=== PATIENT | female | born 1935 | race Caucasian/White ===

== ENCOUNTER 2017-03-06 08:44 | Emergency (ER) | payer OTHER ==
[~2017-03-06] VITALS: Ht 160 cm; Wt 65.8 kg
[~2017-03-06 08:44] MED LIST: AMOXICILLIN500 M2 PO; ANTIVERT/2525 M1 PO; ASPIRIN ADULT L81 M1 PO; ASPIRIN80 MG PO; ATARAX25 MG PO; CIPRO500 MG PO; CIPROFLOXACIN500 MG PO; CLARITIN10 MG PO; CRESTOR10 MG PO; DAYPRO600 M1 PO; DIOVAN 12.5 MG-1 TAB PO; ELIMITE 5%60 GM PO; ISOTRATE ER60 MG PO; KENALOG0.1% TP; LEVOTHYROXINE0.1 MG PO; MECLIZINE HCL25 M2 PO; MEDROL DOSEPAK4 MG PO; NORVASC2.5 MG PO; OCUVITE1 TA1 PO; PRILOSEC10 MG/Pack PO; PRILOSEC20 M1 PO; RANEXA500 M1 PO; RANEXA500 MG PO; ROBITUSSIN AC 110 ML PO; SYNTHROID,LEVO75 MCG PO; TOPROL XL25 MG PO; VALSARTAN-HCTZ1 EAC1 PO; VALSARTAN-HCTZ1 EAC2 PO
[2017-03-06 09:15] LABS: BASO # 0.1 10*3/uL (0.0-0.1); BASO % 0.9 % (0.0-1.0); EOS # 0.4 10*3/uL (0.0-0.4); EOS % 4.1 % (1.0-4.0); HEMATOCRIT 38.6 % (37.0-47.0); HEMOGLOBIN 13.3 g/dl (12.0-16.0); IG # 0.1 10*3/uL (0.0-0.1); LYMPH # 1.6 10*3/uL (1.3-4.4); LYMPH % 18.9 % (27.0-41.0); MEAN CELL VOLUME 95.3 fl (81.0-99.0); MEAN CORPUSCULAR HGB 32.8 pg (27.0-31.0); MEAN CORPUSCULAR HGB CONC 34.5 g/dl (33.0-37.0); MEAN PLATELET VOLUME 8.9 fl (9.6-12.3); MONO # 0.7 10*3/uL (0.1-1.0); MONO % 7.5 % (3.0-9.0); NEUT # 5.9 10*3/uL (2.3-7.9); NEUT % 67.9 % (47.0-73.0); PLATELET COUNT AUTOMATED 214 10*3/uL (130-400); RED BLOOD COUNT 4.05 10*6/uL (4.10-5.10); RED CELL DISTRI WIDTH 12.3 % (0-14.5); WHITE BLOOD COUNT 8.6 10*3/uL (4.8-10.8)
[2017-03-06 09:25] LABS: PROTHROMBIN TIME 10.6 SECONDS (9.0-12.4)
[2017-03-06 09:31] LABS: ALBUMIN 3.8 gm/dl (3.1-4.5); ALKALINE PHOSPHATASE 106 U/L (45-117); BILIRUBIN, TOTAL 0.7 mg/dl (0.2-1.0); BUN 15 mg/dl (7-24); CARBON DIOXIDE 23 mmol/L (21-32); CHLORIDE 109 mmol/L (98-107); CPK 40 U/L (26-192); EST GLOM FILT AFRICAN AMERICAN 47 ml/min; GLUCOSE 123 mg/dL (65-99); MAGNESIUM 1.8 mg/dL (1.5-2.1); POTASSIUM 4.2 mmol/L (3.5-5.1); SGOT/AST 16 IU/L (3-35); SGPT/ALT 19 U/L (12-78); SODIUM 136 mmol/L (136-145); TOTAL PROTEIN 6.9 gm/dL (6.4-8.2)
[2017-03-06 09:32] LABS: C-REACTIVE PROTEIN < 0.29 MG/DL (0-0.3); CKMB < 0.5 ng/ml (0.5-3.6); TROPONIN I < 0.015 ng/ml (<0.045)
[2017-03-06] MEDS ORDERED: PREDNISONE20 M1 PO (10:45)
[2017-03-06 10:54] VITALS: BP 157/70
[2017-03-06 11:01] LABS: BILIRUBIN NEGATIVE (NEGATIVE); BLOOD NEGATIVE (NEGATIVE); CLARITY SL CLOUDY (CLEAR); COLOR YELLOW (YELLOW); GLUCOSE NEGATIVE (NEGATIVE); KETONE NEGATIVE (NEGATIVE); LEUKO ESTERASE 3+ (NEGATIVE); NITRITE NEGATIVE (NEGATIVE); PH 5.5 (5.0-9.0); PROTEIN NEGATIVE (NEGATIVE); UROBILINOGEN 0.2 E.U./dl (0.2-1.0)
[2017-03-06 11:14] LABS: BACTERIA 2+; WBC 16-20 wbc/hpf (0-5)
[2017-03-06 11:15] LABS: URINE REFLEX COMMENT YES (NO)
[2017-03-06] MEDS ORDERED: CIPRO250 MG PO (12:24)
[2017-03-06] MEDS ORDERED: ZYRTEC10 MG PO (15:14)
[2017-03-06] MEDS ORDERED: VASOTEC5 MG PO (15:15)
[2017-03-06] MEDS ORDERED: COREG25 MG PO (15:17)
== END 2017-03-06 13:26 | disposition home or self-care (01) ==
LOC: ED 08:44
PROVIDERS: Emergency Medicine
DX: N39.0 Urinary tract infection, site not specified (principal); I11.0 Hypertensive heart disease with heart failure; I50.9 Heart failure, unspecified; I25.10 Atherosclerotic heart disease of native coronary artery without angina pectoris; E78.5 Hyperlipidemia, unspecified; Z88.6 Allergy status to analgesic agent; Z88.2 Allergy status to sulfonamides; Z79.82 Long term (current) use of aspirin; Z79.899 Other long term (current) drug therapy

== ENCOUNTER 2017-03-06 13:42 | Inpatient (IN) | payer OTHER ==
[~2017-03-06] VITALS: Ht 160 cm; Wt 65.5 kg
[~2017-03-06 13:42] MED LIST changes: +CIPRO250 MG PO; +PREDNISONE20 M1 PO
[2017-03-06 13:46] VITALS: BP 128/50
[2017-03-06 14:28] VITALS: BP 138/54
[2017-03-06 14:33] LABS: CPK 39 U/L (26-192)
[2017-03-06 14:36] LABS: CKMB < 0.5 ng/ml (0.5-3.6); TROPONIN I < 0.015 ng/ml (<0.045)
[2017-03-06] MEDS ORDERED: ZYRTEC10 MG PO (15:14)
[2017-03-06] MEDS ORDERED: VASOTEC5 MG PO (15:15)
[2017-03-06] MEDS ORDERED: COREG25 MG PO (15:17)
[2017-03-06 15:59] VITALS: BP 132/50
[2017-03-06 20:00] VITALS: BP 123/51
[2017-03-07] VITALS: BP 128/50
[2017-03-07 06:27] LABS: BASO % 0.6 % (0.0-1.0); EOS # 0.2 10*3/uL (0.0-0.4); EOS % 3.5 % (1.0-4.0); HEMATOCRIT 35.5 % (37.0-47.0); HEMOGLOBIN 11.9 g/dl (12.0-16.0); LYMPH # 1.9 10*3/uL (1.3-4.4); LYMPH % 29.5 % (27.0-41.0); MEAN CELL VOLUME 96.5 fl (81.0-99.0); MEAN CORPUSCULAR HGB 32.3 pg (27.0-31.0); MEAN CORPUSCULAR HGB CONC 33.5 g/dl (33.0-37.0); MEAN PLATELET VOLUME 9.5 fl (9.6-12.3); MONO # 0.7 10*3/uL (0.1-1.0); MONO % 10.6 % (3.0-9.0); NEUT # 3.6 10*3/uL (2.3-7.9); NEUT % 55.5 % (47.0-73.0); PLATELET COUNT AUTOMATED 212 10*3/uL (130-400); RED BLOOD COUNT 3.68 10*6/uL (4.10-5.10); RED CELL DISTRI WIDTH 12.6 % (0-14.5); WHITE BLOOD COUNT 6.5 10*3/uL (4.8-10.8)
[2017-03-07 06:37] LABS: INTERNATIONAL NORM RATIO 1.1 (2.0-3.5); PROTHROMBIN TIME 11.3 SECONDS (9.0-12.4)
[2017-03-07 06:48] LABS: ALBUMIN 3.3 gm/dl (3.1-4.5); BILIRUBIN, TOTAL 0.5 mg/dl (0.2-1.0); MAGNESIUM 1.9 mg/dL (1.5-2.1); PHOSPHOROUS 2.7 mg/dL (2.5-4.9); POTASSIUM 4.4 mmol/L (3.5-5.1)
[2017-03-07 06:54] LABS: FREE T4 0.77 ng/dl (0.76-1.46); THYROID STIM HORMONE (HS) 11.8 uIU/ml (0.358-4.75); TOTAL PROTEIN 5.8 gm/dL (6.4-8.2)
[2017-03-07 08:00] VITALS: BP 124/72
[2017-03-07 08:27] LABS: VITAMIN D, 25-HYDROXY 25.7 ng/mL (30-100)
[2017-03-07 08:28] LABS: FOLIC ACID 14.84 ng/mL (>5.38)
[2017-03-07 12:00] VITALS: BP 139/58
[2017-03-07 16:00] VITALS: BP 109/49
[2017-03-07 20:00] VITALS: BP 99/53
[2017-03-08] VITALS: BP 103/48
[2017-03-08 06:02] LABS: POTASSIUM 4.2 mmol/L (3.5-5.1)
[2017-03-08 08:00] VITALS: BP 136/52
[2017-03-08] MEDS ORDERED: Synthroid,Lev100 MCG PO (08:56)
[2017-03-08] MEDS ORDERED: DOXYCYCLINE100 M3 PO (08:56)
[2017-03-08 12:00] VITALS: BP 126/52
== END 2017-03-08 13:42 | disposition home or self-care (01) | DRG 689 ==
LOC: ED 13:42 → 5E 14:21 → EDHOLD 14:21 → 5E 14:55
PROVIDERS: Emergency Medicine; Student in an Organized Health Care Education/Training Program
DX: N39.0 Urinary tract infection, site not specified (principal); N17.0 Acute kidney failure with tubular necrosis; E87.8 Other disorders of electrolyte and fluid balance, not elsewhere classified; D72.1 Eosinophilia; I50.32 Chronic diastolic (congestive) heart failure; I13.0 Hypertensive heart and chronic kidney disease with heart failure and stage 1 through stage 4 chronic kidney disease, or unspecified chronic kidney disease; E86.0 Dehydration; N18.3 Chronic kidney disease, stage 3 (moderate); I95.1 Orthostatic hypotension; D72.810 Lymphocytopenia; R73.9 Hyperglycemia, unspecified; E66.3 Overweight; I25.119 Atherosclerotic heart disease of native coronary artery with unspecified angina pectoris; E78.5 Hyperlipidemia, unspecified; D64.9 Anemia, unspecified; R00.1 Bradycardia, unspecified; B96.20 Unspecified Escherichia coli [E. coli] as the cause of diseases classified elsewhere; Z90.49 Acquired absence of other specified parts of digestive tract; Z95.5 Presence of coronary angioplasty implant and graft; Z82.49 Family history of ischemic heart disease and other diseases of the circulatory system; Z83.3 Family history of diabetes mellitus; Z88.5 Allergy status to narcotic agent; Z88.2 Allergy status to sulfonamides; Z79.82 Long term (current) use of aspirin; Z79.899 Other long term (current) drug therapy; Z68.25 Body mass index [BMI] 25.0-25.9, adult

== ENCOUNTER → 2018-01-02 | Outpatient (CLI) | payer OTHER ==
[~2018-01-02] MED LIST changes: +COREG25 MG PO; +DOXYCYCLINE100 M3 PO; +OMNICEF300 MG PO; +Synthroid,Lev100 MCG PO; +VASOTEC5 MG PO; +ZYRTEC10 MG PO
== END | disposition home or self-care (01) ==
LOC: RAD 12:44
DX: Z13.820 Encounter for screening for osteoporosis (principal); Z78.0 Asymptomatic menopausal state

== ENCOUNTER → 2018-02-05 | Outpatient (CLI) | payer OTHER ==
[~2018-02-05] MED LIST changes: +HYDR25T PO; +KLOR-CON 1010 ME1 PO; +NORVASC5 MG PO
--- NOTE | ~2018-02-05 | ST ---
[place], [place] EXERCISE STRESS TEST REPORT NAME: BRAD ERNST [facility] #: [id number] UNIT #: [id number] ROOM: DOCTOR: MARISELA MELGAR MD BIRTHDATE: [birth year] DOS: 02/05/2018 Lexiscan stress EKG REFERRING PHYSICIAN: Dr. Hardin. INDICATION: Chest pain, CAD. The patient underwent standard protocol Lexiscan stress EKG. Baseline EKG shows sinus bradycardia with heart rate 57, blood pressure 162/64. The patient's peak heart rate was with a blood pressure 172/62. The patient had no chest pain, no ischemic changes, no arrhythmias noted. SUMMARY OF FINDINGS: Unremarkable Lexiscan stress EKG. Please see separate report for perfusion scan imaging results. MARISELA MELGAR MD CM:STRESS:EXERCISE STRESS TEST REPORT 1235 22 MARISELA MELGAR MD
== END | disposition home or self-care (01) ==
LOC: CARD 01:53
DX: I10 Essential (primary) hypertension (principal); I25.10 Atherosclerotic heart disease of native coronary artery without angina pectoris

== ENCOUNTER 2018-02-10 16:26 | Emergency (ER) | payer OTHER ==
[~2018-02-10] VITALS: Ht 160 cm; Wt 65.8 kg
--- NOTE | ~2018-02-10 | EKG ---
[place], [place] ELECTROCARDIOGRAM REPORT NAME: BRAD ERNST UNIT #: [id number] ROOM: DOCTOR: EPIPHANY DRAFT REPORT BIRTHDATE: [birth year] [facility] Test Date: 2018-02-10 Test Time: 17:04:58 Pat Name: BRAD ERNST Department: Room: Gender: F Paper Goods Machine Operator: : 1935 Requested By: OLGA HOLM PA-C Order Number: [id number] Reading MD: Robin Sharma MD Measurements Intervals [place] Rate: 79 P: 30 ND: 196 QRS: 49 QRSD: 104 T: 72 QT: 382 QTc: 438 Interpretive Statements Sinus rhythm Electronically Signed On 02-10-2018 19:24:45 PDT by Robin Sharma MD CM:EKGRPT:ELECTROCARDIOGRAM REPORT 03 23 OLGA HOLM PA-C EPIPHANY DRAFT REPORT OLGA HOLM PA-C
[~2018-02-10 16:26] MED LIST changes: -HYDR25T PO; -KLOR-CON 1010 ME1 PO; -NORVASC5 MG PO; -OMNICEF300 MG PO
[2018-02-10 17:15] LABS: BASO # 0.1 10*3/uL (0.0-0.1); BASO % 0.9 % (0.0-1.0); EOS # 0.3 10*3/uL (0.0-0.4); EOS % 5.1 % (1.0-4.0); HEMATOCRIT 40.8 % (37.0-47.0); LYMPH # 1.8 10*3/uL (1.3-4.4); LYMPH % 26.9 % (27.0-41.0); MEAN CELL VOLUME 96.5 fl (81.0-99.0); MEAN CORPUSCULAR HGB 33.1 pg (27.0-31.0); MEAN CORPUSCULAR HGB CONC 34.3 g/dl (33.0-37.0); MEAN PLATELET VOLUME 9.2 fl (9.6-12.3); MONO # 0.7 10*3/uL (0.1-1.0); MONO % 11.2 % (3.0-9.0); NEUT # 3.7 10*3/uL (2.3-7.9); NEUT % 55.4 % (47.0-73.0); PLATELET COUNT AUTOMATED 205 10*3/uL (130-400); RED BLOOD COUNT 4.23 10*6/uL (4.10-5.10); RED CELL DISTRI WIDTH 12.3 % (0-14.5); WHITE BLOOD COUNT 6.6 10*3/uL (4.8-10.8)
[2018-02-10 17:22] LABS: BILIRUBIN NEGATIVE (NEGATIVE); BLOOD TRACE-INTACT (NEGATIVE); CLARITY SL CLOUDY (CLEAR); COLOR YELLOW (YELLOW); GLUCOSE NEGATIVE (NEGATIVE); KETONE NEGATIVE (NEGATIVE); LEUKO ESTERASE 2+ (NEGATIVE); NITRITE POSITIVE (NEGATIVE); SPECIFIC GRAVITY >= 1.030 (1.005-1.030); UROBILINOGEN 0.2 E.U./dl (0.2-1.0)
[2018-02-10 17:31] LABS: BACTERIA 4+; MUCOUS TRACE; RBC 0-2 rbc/hpf (0-2)
[2018-02-10 17:35] LABS: ALBUMIN 4.2 gm/dl (3.1-4.5); ALKALINE PHOSPHATASE 108 U/L (45-117); BUN 20 mg/dl (7-24); CHLORIDE 108 mmol/L (98-107); POTASSIUM 4.9 mmol/L (3.5-5.1); SGOT/AST 15 IU/L (3-35); SGPT/ALT 21 U/L (12-78); SODIUM 139 mmol/L (136-145)
[2018-02-10 17:37] LABS: TROPONIN I < 0.015 ng/ml (<0.045)
[2018-02-10] MEDS ORDERED: OMNICEF300 MG PO (17:48)
[2018-02-10 18:22] VITALS: BP 152/62
[2018-02-11] MEDS ORDERED: NORVASC5 MG PO (21:46)
== END 2018-02-10 18:22 | disposition home or self-care (01) ==
LOC: ED 16:26
PROVIDERS: Physician Assistant
DX: N39.0 Urinary tract infection, site not specified (principal); I12.9 Hypertensive chronic kidney disease with stage 1 through stage 4 chronic kidney disease, or unspecified chronic kidney disease; N18.3 Chronic kidney disease, stage 3 (moderate); Z88.6 Allergy status to analgesic agent; Z88.2 Allergy status to sulfonamides; Z79.82 Long term (current) use of aspirin; Z79.899 Other long term (current) drug therapy

== ENCOUNTER 2018-02-11 16:51 | Inpatient (IN) | payer OTHER ==
[2018-02-11] VITALS (7 sets, daily range): BP systolic 137–175; BP diastolic 54–99
[~2018-02-11] VITALS: Ht 160 cm; Wt 66.0 kg
--- NOTE | ~2018-02-11 | EKG ---
[place], [place] ELECTROCARDIOGRAM REPORT NAME: BRAD ERNST UNIT #: [id number] ROOM: 411 DOCTOR: MARLENE DRAFT REPORT BIRTHDATE: [birth year] [facility] Test Date: 2018-02-11 Test Time: 17:16:24 Pat Name: BRAD ERNST Department: Room: Gender: F Solids Control Technician: LUDIVINA : 1935 Requested By: ANGEL ALY Order Number: [id number] Reading MD: Robin Sharma MD Measurements Intervals [place] Rate: 67 P: 36 NC: 173 QRS: 11 QRSD: 103 T: 51 QT: 400 QTc: 423 Interpretive Statements Sinus rhythm Compared to ECG 02/10/2018 17:04:58 No significant changes Electronically Signed On 02-11-2018 20:46:23 PDT by Robin Sharma MD CM:EKGRPT:ELECTROCARDIOGRAM REPORT 45 ANGEL ARAUJO DRAFT REPORT ANGEL ALY DO
[~2018-02-11 16:51] MED LIST changes: +OMNICEF300 MG PO
[2018-02-11 17:19] LABS: BASO # 0.1 10*3/uL (0.0-0.1); EOS # 0.4 10*3/uL (0.0-0.4); EOS % 5.1 % (1.0-4.0); HEMATOCRIT 39.9 % (37.0-47.0); HEMOGLOBIN 13.7 g/dl (12.0-16.0); LYMPH # 1.8 10*3/uL (1.3-4.4); LYMPH % 25.3 % (27.0-41.0); MEAN CELL VOLUME 96.1 fl (81.0-99.0); MEAN CORPUSCULAR HGB CONC 34.3 g/dl (33.0-37.0); MEAN PLATELET VOLUME 8.6 fl (9.6-12.3); MONO # 0.8 10*3/uL (0.1-1.0); MONO % 11.3 % (3.0-9.0); NEUT # 4.1 10*3/uL (2.3-7.9); NEUT % 56.9 % (47.0-73.0); PLATELET COUNT AUTOMATED 197 10*3/uL (130-400); RED BLOOD COUNT 4.15 10*6/uL (4.10-5.10); RED CELL DISTRI WIDTH 12.3 % (0-14.5); WHITE BLOOD COUNT 7.2 10*3/uL (4.8-10.8)
[2018-02-11 17:30] LABS: ACT PARTIAL THROMBO TIME 25.4 SECONDS (20.8-31.5)
[2018-02-11 17:46] LABS: ALKALINE PHOSPHATASE 108 U/L (45-117); BUN 17 mg/dl (7-24); CHLORIDE 112 mmol/L (98-107); CREATININE 1.23 mg/dL (0.55-1.02); LIPASE 132 U/L (73-393); POTASSIUM 4.3 mmol/L (3.5-5.1); SGOT/AST 13 IU/L (3-35); SGPT/ALT 20 U/L (12-78); SODIUM 140 mmol/L (136-145); TOTAL PROTEIN 6.6 gm/dL (6.4-8.2); TROPONIN I < 0.015 ng/ml (<0.045)
[2018-02-11] MEDS ORDERED: NORVASC5 MG PO (21:46)
[2018-02-12] VITALS: BP 140/51
[2018-02-12 07:02] LABS: BASO # 0.1 10*3/uL (0.0-0.1); BASO % 0.9 % (0.0-1.0); EOS # 0.4 10*3/uL (0.0-0.4); EOS % 5.5 % (1.0-4.0); HEMATOCRIT 39.4 % (37.0-47.0); HEMOGLOBIN 13.2 g/dl (12.0-16.0); LYMPH # 1.8 10*3/uL (1.3-4.4); LYMPH % 26.7 % (27.0-41.0); MEAN CELL VOLUME 96.1 fl (81.0-99.0); MEAN CORPUSCULAR HGB 32.2 pg (27.0-31.0); MEAN CORPUSCULAR HGB CONC 33.5 g/dl (33.0-37.0); MEAN PLATELET VOLUME 9.3 fl (9.6-12.3); MONO # 0.8 10*3/uL (0.1-1.0); MONO % 12.1 % (3.0-9.0); NEUT # 3.7 10*3/uL (2.3-7.9); NEUT % 54.5 % (47.0-73.0); PLATELET COUNT AUTOMATED 209 10*3/uL (130-400); RED CELL DISTRI WIDTH 12.2 % (0-14.5); WHITE BLOOD COUNT 6.7 10*3/uL (4.8-10.8)
[2018-02-12 07:30] LABS: ALBUMIN 3.7 gm/dl (3.1-4.5); CREATININE 1.13 mg/dL (0.55-1.02); FREE T4 1.15 ng/dl (0.76-1.46); PHOSPHOROUS 3.1 mg/dL (2.5-4.9); POTASSIUM 4.1 mmol/L (3.5-5.1); TOTAL PROTEIN 6.2 gm/dL (6.4-8.2)
[2018-02-12 07:34] LABS: THYROID STIM HORMONE (HS) 1.54 uIU/ml (0.358-4.75)
[2018-02-12 08:00] VITALS: BP 114/62; BP 150/60
[2018-02-12 08:42] LABS: VITAMIN D, 25-HYDROXY 56.9 ng/mL (30-100)
[2018-02-12] MEDS ORDERED: HYDR25T PO (10:15)
[2018-02-12] MEDS ORDERED: SYNTHROID,LEVO75 MCG PO (10:15)
[2018-02-12] MEDS ORDERED: KLOR-CON 1010 ME1 PO (10:15)
== END 2018-02-12 11:45 | disposition home or self-care (01) | DRG 305 ==
LOC: ED 16:51 → 4E 18:05 → EDHOLD 18:05 → 4E 18:27
PROVIDERS: Emergency Medicine; Internal Medicine
DX: I16.1 Hypertensive emergency (principal); I50.32 Chronic diastolic (congestive) heart failure; I35.8 Other nonrheumatic aortic valve disorders; N18.3 Chronic kidney disease, stage 3 (moderate); R00.1 Bradycardia, unspecified; I25.10 Atherosclerotic heart disease of native coronary artery without angina pectoris; E03.9 Hypothyroidism, unspecified; K21.9 Gastro-esophageal reflux disease without esophagitis; R73.03 Prediabetes; E66.3 Overweight; E78.5 Hyperlipidemia, unspecified; I13.0 Hypertensive heart and chronic kidney disease with heart failure and stage 1 through stage 4 chronic kidney disease, or unspecified chronic kidney disease; Z96.1 Presence of intraocular lens; Z90.49 Acquired absence of other specified parts of digestive tract; Z98.49 Cataract extraction status, unspecified eye; Z98.61 Coronary angioplasty status; Z83.3 Family history of diabetes mellitus; Z82.49 Family history of ischemic heart disease and other diseases of the circulatory system; Z80.9 Family history of malignant neoplasm, unspecified; Z88.5 Allergy status to narcotic agent; Z88.2 Allergy status to sulfonamides; Z79.82 Long term (current) use of aspirin; Z79.899 Other long term (current) drug therapy; Z68.25 Body mass index [BMI] 25.0-25.9, adult

== ENCOUNTER → 2018-02-25 | Outpatient (CLI) | payer OTHER ==
[~2018-02-25] MED LIST changes: +HYDR25T PO; +KLOR-CON 1010 ME1 PO; +NORVASC5 MG PO
[2018-02-25 09:22] LABS: HEMATOCRIT 39.9 % (37.0-47.0); HEMOGLOBIN 13.3 g/dl (12.0-16.0); MEAN CORPUSCULAR HGB 32.7 pg (27.0-31.0); MEAN CORPUSCULAR HGB CONC 33.3 g/dl (33.0-37.0); MEAN PLATELET VOLUME 8.7 fl (9.6-12.3); RED BLOOD COUNT 4.07 10*6/uL (4.10-5.10); RED CELL DISTRI WIDTH 11.9 % (0-14.5); WHITE BLOOD COUNT 8.3 10*3/uL (4.8-10.8)
[2018-02-25 09:54] LABS: ALBUMIN 3.9 gm/dl (3.1-4.5); POTASSIUM 4.8 mmol/L (3.5-5.1)
[2018-02-25 10:03] LABS: CREATININE 1.35 mg/dL (0.55-1.02); FREE T4 1.13 ng/dl (0.76-1.46); THYROID STIM HORMONE (HS) 2.04 uIU/ml (0.358-4.75); TOTAL PROTEIN 6.4 gm/dL (6.4-8.2)
== END | disposition home or self-care (01) ==
LOC: LAB 08:59
PROVIDERS: Family Medicine
DX: I10 Essential (primary) hypertension (principal); E78.00 Pure hypercholesterolemia, unspecified; E55.9 Vitamin D deficiency, unspecified; E03.9 Hypothyroidism, unspecified

== ENCOUNTER → 2018-04-30 | Outpatient (CLI) | payer OTHER | END | disposition home or self-care (01) | LOC: RAD 13:48 | DX: R05 Cough (principal); R06.2 Wheezing; I10 Essential (primary) hypertension ==

== ENCOUNTER 2018-06-30 07:57 | Emergency (ER) | payer OTHER ==
[~2018-06-30] VITALS: Ht 160 cm; Wt 64.4 kg
--- NOTE | ~2018-06-30 | EKG ---
[place], [place] ELECTROCARDIOGRAM REPORT NAME: BRAD ERNST UNIT #: [id number] ROOM: DOCTOR: MARLENE DRAFT REPORT BIRTHDATE: [birth year] [facility] Test Date: 2018-06-30 Test Time: 08:17:07 Pat Name: BRAD ERNST Department: Room: Gender: F Facing Baster: JOSE J : 1935 Requested By: ANGEL ALY Order Number: [id number] Reading MD: Kaila Bonilla MD Measurements Intervals [place] Rate: 80 P: 20 RI: 168 QRS: 9 QRSD: 109 T: 95 QT: 390 QTc: 450 Interpretive Statements Sinus rhythm Borderline repolarization abnormality Compared to ECG 02/11/2018 17:16:24 No significant changes Electronically Signed On 07-04-2018 8:45:47 PST by Kaila Bonilla MD CM:EKGRPT:ELECTROCARDIOGRAM REPORT 6 ANGEL ARAUJO DRAFT REPORT ANGEL ALY DO
[2018-06-30 08:23] LABS: BASO # 0.1 10*3/uL (0.0-0.1); BASO % 1.2 % (0.0-1.0); EOS # 0.3 10*3/uL (0.0-0.4); EOS % 4.5 % (1.0-4.0); HEMATOCRIT 42.1 % (37.0-47.0); HEMOGLOBIN 14.6 g/dl (12.0-16.0); LYMPH # 2.3 10*3/uL (1.3-4.4); LYMPH % 31.8 % (27.0-41.0); MEAN CELL VOLUME 93.6 fl (81.0-99.0); MEAN CORPUSCULAR HGB 32.4 pg (27.0-31.0); MEAN CORPUSCULAR HGB CONC 34.7 g/dl (33.0-37.0); MONO # 0.8 10*3/uL (0.1-1.0); MONO % 10.6 % (3.0-9.0); NEUT # 3.8 10*3/uL (2.3-7.9); NEUT % 51.4 % (47.0-73.0); PLATELET COUNT AUTOMATED 197 10*3/uL (130-400); RED CELL DISTRI WIDTH 12.1 % (0-14.5); WHITE BLOOD COUNT 7.4 10*3/uL (4.8-10.8)
[2018-06-30 08:26] LABS: BILIRUBIN NEGATIVE (NEGATIVE); BLOOD NEGATIVE (NEGATIVE); CLARITY CLOUDY (CLEAR); COLOR YELLOW (YELLOW); GLUCOSE NEGATIVE (NEGATIVE); KETONE NEGATIVE (NEGATIVE); LEUKO ESTERASE 2+ (NEGATIVE); NITRITE NEGATIVE (NEGATIVE); PH 5.5 (5.0-9.0); SPECIFIC GRAVITY >= 1.030 (1.005-1.030); UROBILINOGEN 0.2 E.U./dl (0.2-1.0)
[2018-06-30 08:34] LABS: ACT PARTIAL THROMBO TIME 25.3 SECONDS (20.8-31.5)
[2018-06-30 08:38] LABS: ALBUMIN 3.8 gm/dl (3.1-4.5); ALKALINE PHOSPHATASE 139 U/L (45-117); BUN 14 mg/dl (7-24); CHLORIDE 111 mmol/L (98-107); CREATININE 1.22 mg/dL (0.55-1.02); LIPASE 249 U/L (73-393); POTASSIUM 4.1 mmol/L (3.5-5.1); SGOT/AST 21 IU/L (3-35); SGPT/ALT 22 U/L (12-78); SODIUM 140 mmol/L (136-145); TOTAL PROTEIN 6.7 gm/dL (6.4-8.2)
[2018-06-30 08:39] LABS: TROPONIN I < 0.015 ng/ml (<0.045)
[2018-06-30 08:44] LABS: BACTERIA 3+; WBC 41-50 wbc/hpf (0-5)
[2018-06-30 09:17] VITALS: BP 160/64
[2018-06-30] MEDS ORDERED: CIPRO250 MG PO (10:02)
== END 2018-06-30 10:10 | disposition home or self-care (01) ==
LOC: ED 07:57
PROVIDERS: Emergency Medicine
DX: N39.0 Urinary tract infection, site not specified (principal); I13.0 Hypertensive heart and chronic kidney disease with heart failure and stage 1 through stage 4 chronic kidney disease, or unspecified chronic kidney disease; N18.3 Chronic kidney disease, stage 3 (moderate); I50.30 Unspecified diastolic (congestive) heart failure; E78.5 Hyperlipidemia, unspecified; I25.10 Atherosclerotic heart disease of native coronary artery without angina pectoris; E03.9 Hypothyroidism, unspecified; K21.9 Gastro-esophageal reflux disease without esophagitis; Z88.6 Allergy status to analgesic agent; Z88.2 Allergy status to sulfonamides; Z79.899 Other long term (current) drug therapy; Z79.82 Long term (current) use of aspirin; Z87.440 Personal history of urinary (tract) infections

== ENCOUNTER → 2018-07-23 | Outpatient (CLI) | payer OTHER ==
[~2018-07-23] MED LIST changes: +IMDUR SA60 M1 PO; +VITAMIN D5000 UNI1 PO; +ZESTRIL10 MG PO
--- NOTE | ~2018-07-23 | WRIGHTHP ---
[place], [place] PATIENT HISTORY AND PHYSICAL EXAM NAME: BRAD ERNST [facility] #: [id number] UNIT #: [id number] ROOM: DOCTOR: SURESH CARDENAS MD BIRTHDATE: [birth year] DOS: 09/30/2018 HISTORY OF PRESENT ILLNESS: The patient is not known to me, 83 years old, who has been sick for almost 2 weeks. Initially, started out with constipation, she took several stool softeners and had multiple diarrheal movements, then she developed high grade fever, nausea, emesis, this lasted for almost 2 weeks. She has not been eating very well. Finally, she decided to call one of her daughters who came and saw that she was continuing to throw up and brought her to the Emergency Room. States that she has been trying to drink water, but she has not been able to keep anything down, because of the continued nausea and emesis. She has not been eating very much at all. She does have chronic urinary symptoms, so she did not think she had a UTI. She denies having any chest pains or palpitations, does not have any abdominal pain. PAST MEDICAL HISTORY: Significant for: 1. Benign hypertension. 2. Coronary artery disease with history of stent placements. 3. Chronic kidney disease stage 3. 4. Hypothyroidism. 5. Gastroesophageal reflux disease. 6. Mixed hyperlipidemia. MEDICATIONS: She is on currently are aspirin 81 daily, amlodipine 5 daily, vitamin D 5000 units daily, isosorbide 60 daily, levothyroxine 75 mcg daily, lisinopril 10 daily, metoprolol 25 daily, Ranexa 500 mg twice a day, Crestor 10 daily. SOCIAL HISTORY: Nonsmoker, does not use any alcohol. Lives at home alone. She is . She has 6 grown children. PHYSICAL EXAMINATION: GENERAL: She is very young, looking for her 84. VITAL SIGNS: Graphic trend shows a pressure of 132/70, pulse of 76, respirations 18, afebrile, temperature 100.2 during the night. LUNGS: Diminished breath sounds. No wheezes, rales or rhonchi heard. HEART: Regular. ABDOMEN: Obese, soft. EXTREMITIES: Without any edema. A birthmark noticed on the sellers. ASSESSMENT AND PLAN: 1. The patient presents with high grade fever, nausea and emesis. Flu titer was negative. Most likely has an underlying urinary tract infection. Urine culture has been reflexed. The patient was placed on IV fluids and IV antibiotics, awaiting culture results. 2. Chronic kidney disease with interval worsening with acute kidney injury, possibly from prerenal azotemia. The patient was given IV fluids. Repeat labs will be ordered tomorrow. 3. Benign hypertension, controlled. 4. Coronary artery disease with history of stent placement. Restart home medications. [place], [place] PATIENT HISTORY AND PHYSICAL EXAM [facility]: [id number] UNIT #: [id number] ROOM: DOCTOR: SURESH CARDENAS MD BIRTHDATE: [birth year] SURESH CARDENAS MD CM:HISPHYS:PATIENT HISTORY AND PHYSICAL EXAMINATION 0826 0930 SURESH CARDENAS MD 10/01/18 1418 BRIAN HARPER.TM
[2018-07-23 11:10] LABS: ALBUMIN 3.8 gm/dl (3.1-4.5); CREATININE 1.41 mg/dL (0.55-1.02); POTASSIUM 4.6 mmol/L (3.5-5.1); TOTAL PROTEIN 6.9 gm/dL (6.4-8.2)
== END | disposition home or self-care (01) ==
LOC: LAB 09:42
PROVIDERS: Family Medicine
DX: E78.00 Pure hypercholesterolemia, unspecified (principal)

== ENCOUNTER 2018-12-06 22:17 | Emergency (ER) | payer MEDICARE ==
[~2018-12-06] VITALS: Ht 160 cm; Wt 63.5 kg
--- NOTE | ~2018-12-06 | EKG ---
[place], [place] ELECTROCARDIOGRAM REPORT NAME: BRAD ERNST UNIT #: [id number] ROOM: DOCTOR: EPIPHANY DRAFT REPORT BIRTHDATE: [birth year] [facility] Test Date: 2018-12-06 Test Time: 23:00:52 Pat Name: BRAD ERNST Department: er Room: Gender: F Forms Analyst: EKG.TX : 1935 Requested By: SCOT KEBEDE Order Number: [id number] Reading MD: Kaila Bonilla MD Measurements Intervals [place] Rate: 64 P: 20 DE: 157 QRS: 20 QRSD: 106 T: 55 QT: 417 QTc: 431 Interpretive Statements Sinus rhythm Abnormal R-wave progression, late transition Compared to ECG 09/30/2018 00:38:44 No significant changes Electronically Signed On 12-12-2018 9:26:44 PDT by Kaila Bonilla MD CM:EKGRPT:ELECTROCARDIOGRAM REPORT 99 09 SCOT ARAUJO DRAFT REPORT SCOT KEBEDE DO
[~2018-12-06 22:17] MED LIST changes: +CEFUROXIME AXE250 MG PO
[2018-12-06 23:05] LABS: BASO # 0.1 10*3/uL (0.0-0.1); BASO % 0.8 % (0.0-1.0); EOS # 0.4 10*3/uL (0.0-0.4); HEMATOCRIT 39.2 % (37.0-47.0); HEMOGLOBIN 13.5 g/dl (12.0-16.0); LYMPH # 1.2 10*3/uL (1.3-4.4); LYMPH % 18.3 % (27.0-41.0); MEAN CELL VOLUME 95.1 fl (81.0-99.0); MEAN CORPUSCULAR HGB 32.8 pg (27.0-31.0); MEAN CORPUSCULAR HGB CONC 34.4 g/dl (33.0-37.0); MONO # 1.1 10*3/uL (0.1-1.0); MONO % 16.7 % (3.0-9.0); NEUT # 3.7 10*3/uL (2.3-7.9); NEUT % 57.7 % (47.0-73.0); PLATELET COUNT AUTOMATED 200 10*3/uL (130-400); RED BLOOD COUNT 4.12 10*6/uL (4.10-5.10); RED CELL DISTRI WIDTH 12.6 % (0-14.5); WHITE BLOOD COUNT 6.5 10*3/uL (4.8-10.8)
[2018-12-06 23:21] LABS: ALBUMIN 3.6 gm/dl (3.1-4.5); ALKALINE PHOSPHATASE 119 U/L (45-117); BUN 29 mg/dl (7-24); CHLORIDE 110 mmol/L (98-107); CREATININE 1.58 mg/dL (0.55-1.02); POTASSIUM 4.3 mmol/L (3.5-5.1); SGOT/AST 14 IU/L (3-35); SGPT/ALT 18 U/L (12-78); SODIUM 139 mmol/L (136-145)
[2018-12-06 23:24] LABS: TROPONIN I < 0.015 ng/ml (<0.045)
[2018-12-06 23:50] LABS: BILIRUBIN NEGATIVE (NEGATIVE); BLOOD NEGATIVE (NEGATIVE); CLARITY SL CLOUDY (CLEAR); COLOR YELLOW (YELLOW); GLUCOSE NEGATIVE (NEGATIVE); KETONE NEGATIVE (NEGATIVE); LEUKO ESTERASE 1+ (NEGATIVE); NITRITE NEGATIVE (NEGATIVE); SPECIFIC GRAVITY 1.025 (1.005-1.030); UROBILINOGEN 0.2 E.U./dl (0.2-1.0)
[2018-12-07 00:23] LABS: WBC 16-20 wbc/hpf (0-5)
[2018-12-07 00:24] LABS: BACTERIA 3+
[2018-12-07 01:20] VITALS: BP 116/53
[2018-12-07] MEDS ORDERED: TESSALON PERLE100 MG PO (02:45)
== END 2018-12-07 02:57 | disposition home or self-care (01) ==
LOC: ED 22:17
PROVIDERS: Student in an Organized Health Care Education/Training Program
DX: R19.7 Diarrhea, unspecified (principal); R11.2 Nausea with vomiting, unspecified; R05 Cough; I10 Essential (primary) hypertension; I25.10 Atherosclerotic heart disease of native coronary artery without angina pectoris; K21.9 Gastro-esophageal reflux disease without esophagitis; E78.5 Hyperlipidemia, unspecified; E03.9 Hypothyroidism, unspecified; I13.0 Hypertensive heart and chronic kidney disease with heart failure and stage 1 through stage 4 chronic kidney disease, or unspecified chronic kidney disease; N18.3 Chronic kidney disease, stage 3 (moderate); I50.30 Unspecified diastolic (congestive) heart failure; Z79.899 Other long term (current) drug therapy; Z88.6 Allergy status to analgesic agent; Z88.2 Allergy status to sulfonamides; Z79.82 Long term (current) use of aspirin

== ENCOUNTER 2018-12-12 20:17 | Emergency (ER) | payer MEDICARE ==
[~2018-12-12] VITALS: Ht 160 cm; Wt 63.5 kg
[2018-12-12 20:17] VITALS: BP 105/49
[~2018-12-12 20:17] MED LIST changes: +TESSALON PERLE100 MG PO
[2018-12-12 21:19] LABS: BILIRUBIN NEGATIVE (NEGATIVE); BLOOD NEGATIVE (NEGATIVE); CLARITY CLEAR (CLEAR); COLOR YELLOW (YELLOW); GLUCOSE NEGATIVE (NEGATIVE); KETONE NEGATIVE (NEGATIVE); LEUKO ESTERASE 2+ (NEGATIVE); NITRITE NEGATIVE (NEGATIVE); PH 5.5 (5.0-9.0); SPECIFIC GRAVITY 1.025 (1.005-1.030); UROBILINOGEN 0.2 E.U./dl (0.2-1.0)
[2018-12-12 21:28] LABS: BACTERIA 3+; WBC 31-40 wbc/hpf (0-5)
[2018-12-12] MEDS ORDERED: CIPRO500 MG PO (21:46)
== END 2018-12-12 21:35 | disposition home or self-care (01) ==
LOC: ED 20:17
PROVIDERS: Nurse Practitioner Family
DX: N39.0 Urinary tract infection, site not specified (principal); R05 Cough; I25.10 Atherosclerotic heart disease of native coronary artery without angina pectoris; K21.9 Gastro-esophageal reflux disease without esophagitis; E03.9 Hypothyroidism, unspecified; I13.0 Hypertensive heart and chronic kidney disease with heart failure and stage 1 through stage 4 chronic kidney disease, or unspecified chronic kidney disease; N18.3 Chronic kidney disease, stage 3 (moderate); I50.30 Unspecified diastolic (congestive) heart failure; Z88.6 Allergy status to analgesic agent; Z88.2 Allergy status to sulfonamides; Z79.899 Other long term (current) drug therapy; Z79.82 Long term (current) use of aspirin

== ENCOUNTER → 2018-12-25 | Outpatient (CLI) | payer MEDICARE ==
[2018-12-25 09:28] LABS: BASO # 0.1 10*3/uL (0.0-0.1); BASO % 0.6 % (0.0-1.0); EOS # 0.1 10*3/uL (0.0-0.4); EOS % 1.2 % (1.0-4.0); HEMATOCRIT 39.8 % (37.0-47.0); HEMOGLOBIN 13.4 g/dl (12.0-16.0); LYMPH # 1.5 10*3/uL (1.3-4.4); LYMPH % 17.3 % (27.0-41.0); MEAN CORPUSCULAR HGB CONC 33.7 g/dl (33.0-37.0); MEAN PLATELET VOLUME 8.6 fl (9.6-12.3); MONO # 0.9 10*3/uL (0.1-1.0); MONO % 10.5 % (3.0-9.0); NEUT # 6.1 10*3/uL (2.3-7.9); NEUT % 69.2 % (47.0-73.0); PLATELET COUNT AUTOMATED 271 10*3/uL (130-400); RED BLOOD COUNT 4.19 10*6/uL (4.10-5.10); WHITE BLOOD COUNT 8.9 10*3/uL (4.8-10.8)
[2018-12-25 10:06] LABS: CREATININE 1.33 mg/dL (0.55-1.02); FREE T4 1.12 ng/dl (0.76-1.46); POTASSIUM 4.2 mmol/L (3.5-5.1); TOTAL PROTEIN 7.2 gm/dL (6.4-8.2)
[2018-12-25 10:11] LABS: THYROID STIM HORMONE (HS) 1.18 uIU/ml (0.358-4.75)
[2018-12-25 10:47] LABS: VITAMIN D, 25-HYDROXY 36.6 ng/mL (30-100)
== END | disposition home or self-care (01) ==
LOC: LAB 09:07
PROVIDERS: Internal Medicine
DX: R05 Cough (principal); E03.9 Hypothyroidism, unspecified; D51.9 Vitamin B12 deficiency anemia, unspecified; E55.9 Vitamin D deficiency, unspecified; R79.89 Other specified abnormal findings of blood chemistry; R53.81 Other malaise; R06.02 Shortness of breath

== ENCOUNTER → 2019-01-13 | Outpatient (CLI) | payer MEDICARE | END | disposition home or self-care (01) | LOC: CARD 14:36 | DX: I08.0 Rheumatic disorders of both mitral and aortic valves (principal) ==

== ENCOUNTER 2019-04-01 12:21 | Inpatient (IN) | payer MEDICARE ==
[~2019-04-01] VITALS: Ht 160 cm; Wt 60.5 kg
[2019-04-01] VITALS (10 sets, daily range): BP systolic 120–199; BP diastolic 58–96
[2019-04-01 12:41] LABS: BASO # 0.1 10*3/uL (0.0-0.1); BASO % 0.6 % (0.0-1.0); EOS # 0.2 10*3/uL (0.0-0.4); EOS % 1.8 % (1.0-4.0); HEMATOCRIT 44.3 % (37.0-47.0); HEMOGLOBIN 15.3 g/dl (12.0-16.0); LYMPH # 1.5 10*3/uL (1.3-4.4); LYMPH % 16.6 % (27.0-41.0); MEAN CELL VOLUME 98.9 fl (81.0-99.0); MEAN CORPUSCULAR HGB 34.2 pg (27.0-31.0); MEAN CORPUSCULAR HGB CONC 34.5 g/dl (33.0-37.0); MEAN PLATELET VOLUME 8.9 fl (9.6-12.3); MONO # 0.9 10*3/uL (0.1-1.0); MONO % 9.9 % (3.0-9.0); NEUT # 6.3 10*3/uL (2.3-7.9); NEUT % 70.3 % (47.0-73.0); PLATELET COUNT AUTOMATED 225 10*3/uL (130-400); RED BLOOD COUNT 4.48 10*6/uL (4.10-5.10); RED CELL DISTRI WIDTH 12.3 % (0-14.5)
[2019-04-01 12:59] LABS: ACT PARTIAL THROMBO TIME 26.2 SECONDS (20.0-32.1); INTERNATIONAL NORM RATIO 0.9 (2.0-3.5)
[2019-04-01 13:00] LABS: ALBUMIN 3.9 gm/dl (3.1-4.5); ALKALINE PHOSPHATASE 101 U/L (45-117); BUN 14 mg/dl (7-24); CHLORIDE 105 mmol/L (98-107); POTASSIUM 4.4 mmol/L (3.5-5.1); SGOT/AST 15 IU/L (3-35); SGPT/ALT 25 U/L (12-78); SODIUM 136 mmol/L (136-145)
[2019-04-01 13:03] LABS: TROPONIN I < 0.015 ng/ml (<0.045)
--- NOTE | 2019-04-01 13:42 | NUR ---
PT REMAINS W/O ACUTE DISTRESS NOTED AWAITING ALL RESULTS FOR ADDITIONAL PLAN OF CARE,FAMILY @ BEDSIDE,SAFETY PRECAUTIONS INTACT AND CALL LIGHT WITHIN REACH.
--- NOTE | 2019-04-01 16:02 | NUR ---
PATIENT ARRIVED FROM ER VIA CART,ON MONITOR AND ROOM AIR,ESCORTED BY CORRECTIONAL FACILITY NURSE. ADMISSION ASSESSMENT COMPLETED AT THIS TIME WITHOUT INCIDENT. ALL QUESTIONS ANSWERED FOR PATIENT, ORIENTED TO ROOM, CALL LIGHT, FLOOR. PATIENT DENIES ANY PAIN OR DISTRESS AT THIS TIME. CALL LIGHT WITHIN REACH. WILL CONTINUE TO MONITOR.
--- NOTE | 2019-04-01 17:20 | NUR ---
DR. CARDENAS NOTIFIED OF PATIENT ADMISSION, MEDICATIONS REVIEWED, ORDERS RECEIVED, SEE EMAR.
[2019-04-01 17:54] LABS: BILIRUBIN NEGATIVE (NEGATIVE); BLOOD NEGATIVE (NEGATIVE); CLARITY CLEAR (CLEAR); COLOR YELLOW (YELLOW); GLUCOSE NEGATIVE (NEGATIVE); KETONE NEGATIVE (NEGATIVE); LEUKO ESTERASE 1+ (NEGATIVE); NITRITE NEGATIVE (NEGATIVE); PH 6.5 (5.0-9.0); UROBILINOGEN 0.2 E.U./dl (0.2-1.0)
[2019-04-01 18:19] LABS: BACTERIA 1+
[2019-04-02] VITALS: BP 122/57
[2019-04-02 05:20] VITALS: BP 122/56
--- NOTE | 2019-04-02 07:20 | NUR ---
Shift chart check completed.
[2019-04-02 08:00] VITALS: BP 132/51
--- NOTE | 2019-04-02 08:50 | NUR ---
DR CARDENAS HERE & SAW PATIENT
--- NOTE | 2019-04-02 08:56 | NUR ---
PHYSICAL THERAPY Nursing screen received and chart reviewed. Please order PT evaluation if decline in functional mobility presents. Thank you, Erica Burnette, SPT Amita Gordillo,PT,DPT
--- NOTE | 2019-04-02 09:17 | NUR ---
[facility] NOTIFIED OF CONSULT
--- NOTE | 2019-04-02 10:30 | NUR ---
Dairy Consultant in to talk to patient. Patient states lives at home alone with her daughter, Sima, checking in on him. There are 8 steps in the home. Physician: Dr. Fang Villanueva Pharmacy: [facility] Home health services: none Patient's level of ADLs: INDEPENDENT Patient has working utilities: yes DME: none Follow-up physician's appointment after d/c: she prefers to make her own follow up appt after discharge Does patient want to access PORTAL?: no Discharge plan discussed with patient. She lives at home alone with her daughter, Sima, checking in on her. She is independent in her ADLs and ambulation. Discussed home health care services and she denies any home needs. When medically stable she will be discharged to home. Her daughter will transport on discharge. KOLTON RUBIO
--- NOTE | 2019-04-02 11:04 | NUR ---
PATIENT TOLD THAT SHE IS NPO FOR ULTRASOUND & PT VOICED UNDERSTANDING
[2019-04-02 12:00] VITALS: BP 117/73
[2019-04-02 16:00] VITALS: BP 150/55
[2019-04-02 20:00] VITALS: BP 122/54
--- NOTE | 2019-04-02 22:00 | NUR ---
HS MEDS GIVEN TO PT AT THIS TIME. PT ASSESSMENT COMPLETE. VITALS WNL. PT DENIES DIZZINESS AND SHORTNESS OF BREATH. RESPIRATIONS EASY AND UNLABORED. ALL SAFETY MEASURES IN PLACE. CALL LIGHT IN REACH.
[2019-04-03] VITALS: BP 117/67
--- NOTE | 2019-04-03 04:00 | NUR ---
PT RESTING IN BED, EYES CLOSED. RESPIRATIONS EASY AND UNLABORED ON ROOM AIR. IV FLUIDS INFUSING PER ORDERS. NO S/S OF DISTRESS NOTED. CALL LIGHT IN REACH.
[2019-04-03 07:19] LABS: POTASSIUM 4.4 mmol/L (3.5-5.1)
[2019-04-03 07:23] LABS: CREATININE 1.25 mg/dL (0.55-1.02)
[2019-04-03 07:46] LABS: BASO # 0.1 10*3/uL (0.0-0.1); BASO % 0.7 % (0.0-1.0); EOS # 0.2 10*3/uL (0.0-0.4); EOS % 2.3 % (1.0-4.0); HEMATOCRIT 38.1 % (37.0-47.0); HEMOGLOBIN 12.8 g/dl (12.0-16.0); LYMPH # 1.8 10*3/uL (1.3-4.4); LYMPH % 25.8 % (27.0-41.0); MEAN CELL VOLUME 101.3 fl (81.0-99.0); MEAN CORPUSCULAR HGB CONC 33.6 g/dl (33.0-37.0); MEAN PLATELET VOLUME 9.4 fl (9.6-12.3); MONO # 0.8 10*3/uL (0.1-1.0); MONO % 11.3 % (3.0-9.0); NEUT # 4.1 10*3/uL (2.3-7.9); PLATELET COUNT AUTOMATED 199 10*3/uL (130-400); RED BLOOD COUNT 3.76 10*6/uL (4.10-5.10); RED CELL DISTRI WIDTH 12.7 % (0-14.5); WHITE BLOOD COUNT 6.9 10*3/uL (4.8-10.8)
[2019-04-03 08:00] VITALS: BP 128/52
--- NOTE | 2019-04-03 08:06 | NUR ---
PT RESTING IN BED. NO DISTRESS NOTED. WILL MONITOR
--- NOTE | 2019-04-03 09:00 | NUR ---
Statistician Mathematical in to see patient. No new needs or request at this time. She denies any home needs. When medically stable she will be discharged to home.
[2019-04-03 12:00] VITALS: BP 100/54
[2019-04-03 16:00] VITALS: BP 118/47
[2019-04-03 20:00] VITALS: BP 135/58
[2019-04-04] VITALS: BP 146/67
[2019-04-04] MEDS ORDERED: CEFUROXIME AXE250 MG PO (07:28)
[2019-04-04 08:00] VITALS: BP 150/60
--- NOTE | 2019-04-04 11:17 | NUR ---
[facility] Discharge instructions reviewed with patient/family. Patient receptive and verbalizes understanding. Follow-up care arranged. Written instructions given to patient/family. LYNDSEY TALAMANTES
== END 2019-04-04 11:17 | disposition home or self-care (01) | DRG 690 ==
LOC: ED 12:21 → EDHOLD 15:02 → 5E 15:02
PROVIDERS: Emergency Medicine; ADMIT Internal Medicine
DX: N39.0 Urinary tract infection, site not specified (principal); I16.1 Hypertensive emergency; I50.32 Chronic diastolic (congestive) heart failure; I13.0 Hypertensive heart and chronic kidney disease with heart failure and stage 1 through stage 4 chronic kidney disease, or unspecified chronic kidney disease; E78.2 Mixed hyperlipidemia; B96.20 Unspecified Escherichia coli [E. coli] as the cause of diseases classified elsewhere; I95.2 Hypotension due to drugs; T46.5X5A Adverse effect of other antihypertensive drugs, initial encounter; I25.10 Atherosclerotic heart disease of native coronary artery without angina pectoris; K21.9 Gastro-esophageal reflux disease without esophagitis; N18.3 Chronic kidney disease, stage 3 (moderate); E03.9 Hypothyroidism, unspecified; Z60.2 Problems related to living alone; Z88.2 Allergy status to sulfonamides; Z88.6 Allergy status to analgesic agent; Z79.899 Other long term (current) drug therapy; Z79.82 Long term (current) use of aspirin; Z87.440 Personal history of urinary (tract) infections; Z90.49 Acquired absence of other specified parts of digestive tract; Z95.5 Presence of coronary angioplasty implant and graft; Z98.42 Cataract extraction status, left eye; Z98.41 Cataract extraction status, right eye; Z82.49 Family history of ischemic heart disease and other diseases of the circulatory system; Z83.3 Family history of diabetes mellitus; Z80.8 Family history of malignant neoplasm of other organs or systems; Y92.89 Other specified places as the place of occurrence of the external cause

== ENCOUNTER 2019-04-06 13:34 | Emergency (ER) | payer MEDICARE ==
[~2019-04-06] VITALS: Ht 160 cm; Wt 60.3 kg
[2019-04-06 14:41] LABS: BASO # 0.1 10*3/uL (0.0-0.1); BASO % 0.9 % (0.0-1.0); EOS # 0.2 10*3/uL (0.0-0.4); EOS % 2.1 % (1.0-4.0); HEMATOCRIT 38.5 % (37.0-47.0); HEMOGLOBIN 13.4 g/dl (12.0-16.0); LYMPH # 1.7 10*3/uL (1.3-4.4); LYMPH % 22.2 % (27.0-41.0); MEAN CELL VOLUME 100.5 fl (81.0-99.0); MEAN CORPUSCULAR HGB CONC 34.8 g/dl (33.0-37.0); MEAN PLATELET VOLUME 8.7 fl (9.6-12.3); MONO # 0.8 10*3/uL (0.1-1.0); MONO % 10.8 % (3.0-9.0); NEUT # 4.9 10*3/uL (2.3-7.9); NEUT % 63.4 % (47.0-73.0); PLATELET COUNT AUTOMATED 206 10*3/uL (130-400); RED BLOOD COUNT 3.83 10*6/uL (4.10-5.10); RED CELL DISTRI WIDTH 12.4 % (0-14.5); WHITE BLOOD COUNT 7.8 10*3/uL (4.8-10.8)
[2019-04-06 14:53] LABS: ACT PARTIAL THROMBO TIME 24.9 SECONDS (20.0-32.1); INTERNATIONAL NORM RATIO 0.9 (2.0-3.5)
[2019-04-06 14:56] LABS: ALBUMIN 3.5 gm/dl (3.1-4.5); ALKALINE PHOSPHATASE 98 U/L (45-117); BUN 14 mg/dl (7-24); CHLORIDE 110 mmol/L (98-107); CREATININE 1.18 mg/dL (0.55-1.02); LIPASE 123 U/L (73-393); POTASSIUM 3.9 mmol/L (3.5-5.1); SGOT/AST 15 IU/L (3-35); SGPT/ALT 20 U/L (12-78); SODIUM 139 mmol/L (136-145); TOTAL PROTEIN 6.1 gm/dL (6.4-8.2); TROPONIN I < 0.015 ng/ml (<0.045)
[2019-04-06 15:25] LABS: BILIRUBIN NEGATIVE (NEGATIVE); BLOOD NEGATIVE (NEGATIVE); CLARITY CLEAR (CLEAR); COLOR YELLOW (YELLOW); GLUCOSE NEGATIVE (NEGATIVE); KETONE NEGATIVE (NEGATIVE); LEUKO ESTERASE 1+ (NEGATIVE); NITRITE NEGATIVE (NEGATIVE); PH 5.5 (5.0-9.0); UROBILINOGEN 0.2 E.U./dl (0.2-1.0)
[2019-04-06 15:37] LABS: BACTERIA TRACE
[2019-04-06 16:24] VITALS: BP 186/68
== END 2019-04-06 16:40 | disposition home or self-care (01) ==
LOC: ED 13:34
PROVIDERS: Nurse Practitioner Family
DX: I13.0 Hypertensive heart and chronic kidney disease with heart failure and stage 1 through stage 4 chronic kidney disease, or unspecified chronic kidney disease (principal); N18.3 Chronic kidney disease, stage 3 (moderate); I50.30 Unspecified diastolic (congestive) heart failure; R42 Dizziness and giddiness; R79.1 Abnormal coagulation profile; I25.10 Atherosclerotic heart disease of native coronary artery without angina pectoris; E78.5 Hyperlipidemia, unspecified; K21.9 Gastro-esophageal reflux disease without esophagitis; E03.9 Hypothyroidism, unspecified; Z88.6 Allergy status to analgesic agent; Z88.2 Allergy status to sulfonamides; Z79.899 Other long term (current) drug therapy; Z79.82 Long term (current) use of aspirin

== ENCOUNTER 2019-04-09 11:54 | Inpatient (IN) | payer MEDICARE ==
[~2019-04-09] VITALS: Ht 160 cm; Wt 61.2 kg
[2019-04-09] VITALS (15 sets, daily range): BP systolic 105–221; BP diastolic 50–89
--- NOTE | ~2019-04-09 | WRIGHTHP ---
[place], [place] PATIENT HISTORY AND PHYSICAL EXAM NAME: BRAD ERNST [facility] #: [id number] UNIT #: [id number] ROOM: 408 DOCTOR: SURESH CARDENAS MD BIRTHDATE: [birth year] DOS: 04/09/2019 HISTORY OF PRESENT ILLNESS: The patient is an 84 years old. She has had multiple visits to the ER, yesterday was the second visit this week. She arrived to the Emergency Room on Saturday with poorly controlled hypertension. The patient was sent from the ER, was advised to start her on losartan and this was increased to 100 mg on Saturday because the family called, stating that the blood pressures were not under control. She presented to the Emergency Room on with again elevated blood pressures. The family also thought that she was having headaches and "hallucinations." The patient denied having any hallucinations in this morning, is awake and alert and oriented. During the visit in the ER at this time, she was given clonidine 0.2. Her blood pressure dropped into the 70s and she was admitted. This morning, she has no complaints. Denies any chest pains, palpitations, shortness of breath. Does not have any fever or chills, does not have any abdominal pain, nausea, any emesis. PAST MEDICAL HISTORY: Significant for: 1. Multiple hospitalizations and ER visits with uncontrolled hypertension, last hospitalization early this month with hypertensive crisis and slight UTI, which was treated with antibiotics. 2. Coronary artery disease. 3. Chronic kidney disease. 4. Renal artery stenosis ruled out. 5. Hypothyroidism. 6. Mixed hyperlipidemia. 7. Recent urinary tract infection with Escherichia coli 25,000 colonies. MEDICATIONS: That she is currently on are; she is on aspirin 81 daily, isosorbide 60 daily, levothyroxine 75 mcg daily, losartan 50 daily, Toprol 25 daily, Ranexa 500 b.i.d., rosuvastatin 10 daily. SOCIAL HISTORY: Nonsmoker, does not use any alcohol. PHYSICAL EXAMINATION: GENERAL: She is awake and alert and oriented, in no distress this morning. VITAL SIGNS: Graphic trend shows a pressure of 140/70, pulse of 65, respirations 18, temperature 98.0. LUNGS: Clear. HEART: Regular. ABDOMEN: Soft. EXTREMITIES: Without any edema. ASSESSMENT AND PLAN: 1. Benign hypertension with hypertensive crisis metabolic encephalopathy. The patient has been admitted following sudden drop in her blood pressure. The patient has started on slow IV hydration, hold off on antihypertensives. This morning, the pressures have normalized. We will restart her meds. Cardiology consultation was obtained. They are known to the patient and if cleared, the patient should be able to go home. I have encouraged the patient not to check blood pressures multiple times during the day. [place], [place] PATIENT HISTORY AND PHYSICAL EXAM NAME: BRAD ERNST UNIT #: [id number] ROOM: [facility] DOCTOR: SURESH CARDENAS MD BIRTHDATE: [birth year] 2. Generalized anxiety disorder. She also is complicating, could add a low dose of Lexapro, which should help with anxiety. 3. Recent urinary tract infection. Urine culture repeated has shown no bacterial growth. 4. Coronary artery disease with an echocardiogram showed concentric left ventricular hypertrophy early this month. No further workup. SURESH CARDENAS MD CM:HISPHYS:PATIENT HISTORY AND PHYSICAL EXAMINATION 1205 1231 SURESH CARDENAS MD 04/10/19 1228 interface
--- NOTE | ~2019-04-09 | CON ---
[place], [place] REPORT OF CONSULTATION NAME: BRAD ERNST [facility] #: [id number] UNIT #: [id number] ROOM: 408 DOCTOR: AGUS STAUFFER MD BIRTHDATE: [birth year] DOS: 04/10/2019 REASON FOR CONSULTATION: Hypertension and orthostasis, and coronary artery disease. HISTORY OF PRESENT ILLNESS: This is an 84-year-old patient with history of coronary artery disease, hypertension presented to the Emergency Room for headache and high blood pressure. She had few Emergency Room visits for hypertension in the past and her blood pressure medication has been changed. She noted that her blood pressure was running over 200 and in the Emergency Room, she was treated with hydralazine and again her blood pressure came down and prior to her discharge, the patient sat up on her bed and found to have extremely low blood pressure and she was put on her back and given IV fluids and admitted to the hospital. Her family members at bedside at the time of examination and I discussed with her and her daughter at length about her recent medication change in her symptoms. The patient having some kind of "hallucinations" at home. She discontinued recently her amlodipine due to lower extremity edema. Complaining of occasional dizziness, but no chest pains, no palpitations, no shortness of breath, no PND or orthopnea, no nausea or vomiting. At the time of my examination, the patient denies any chest pain, shortness of breath. She is feeling better. Her last blood pressure was 140/70. REVIEW OF SYSTEMS: Review of 10 systems negative except as mentioned above. PAST MEDICAL HISTORY: 1. Coronary artery disease status post PCI about 10 years ago. 2. Hypertension. 3. Chronic kidney disease. 4. Hypothyroidism. 5. Dyslipidemia. 6. Valvular heart disease, echo 12/2018 showed EF 60% with [id number] aortic regurgitation and mild mitral regurgitation. PAST SURGICAL HISTORY: History of cardiac stent, appendicectomy, cholecystectomy, and cataract surgery. FAMILY HISTORY: Nil contributory due to her age, but father at age 67 from cancer, mother at age 77 from myocardial infarction. ALLERGIES: Reviewed. HOME MEDICATIONS: Reviewed. SOCIAL HISTORY: The patient does not drink, does not use illicit drugs. She is a nonsmoker. PHYSICAL EXAMINATION: VITAL SIGNS: Current blood pressure 140/70, pulse 56, respiratory rate 18, weight 61.2 kg, BMI 29. We repeated her orthostatic blood pressures, the [place], [place] REPORT OF CONSULTATION NAME: BRAD ERNST [facility] #: [id number] UNIT #: [id number] ROOM: [facility] DOCTOR: AGUS STAUFFER MD BIRTHDATE: [birth year] systolic pressure was 136 supine and sitting was 132. She was asymptomatic. GENERAL: Alert, comfortable, in no acute distress. HEENT: Pupils are round and equal. No jaundice. Tongue was moist. NECK: Supple, no distended neck veins, no carotid bruit. CHEST: Symmetrical, nontender. LUNGS: Clear to auscultation bilaterally. HEART: Regular rhythm, no S3, no palpable thrills. ABDOMEN: Benign, nontender. Bowel sounds normal. EXTREMITIES: Showed no edema. Distal pulses palpable. SKIN: Warm and dry. No cyanosis, no clubbing. RECTAL: Deferred. GENITOURINARY: Deferred. NEUROLOGIC: Alert with no focal neurologic deficit. MEDICATIONS: Reviewed. LABORATORY DATA: Reviewed. Creatinine is 1.16. IMPRESSION: 1. Labile hypertension. 2. Orthostasis after the patient was given intravenous hydralazine. 3. Coronary artery disease status post multiple stents several years ago. 4. Dyslipidemia. 5. Chronic kidney disease. 6. History of cerebrovascular accident with transient vision loss. RECOMMENDATIONS: I would recommend continuing her current cardiac and blood pressure medications. She will continue her metoprolol succinate, losartan 50 mg, isosorbide mononitrate 60, and Ranexa. I would recommend her to take p.r.n. amlodipine 5 mg if her systolic pressure is over 180. I will discontinue IV fluids after the current bag is done. The patient is scheduled to see a steam finisher in [facility] on 04/21/2019 for chronic kidney disease and also for blood pressure management. I discussed with the patient and her family members that I would recommend her blood pressure to be managed by a steam finisher who is also a hypertension specialist. The patient advised to drink plenty of fluids, avoid excessive caffeine, and also avoid any abrupt change in her posture to avoid orthostasis. She can be discharged from the cardiac standpoint and follow up with Cardiology in 2-3 weeks. [place], [place] REPORT OF CONSULTATION NAME: BRAD ERNST UNIT #: [id number] ROOM: 408 DOCTOR: XIOMY TERRAZAS,AGUS BIRTHDATE: [birth year] AGUS STAUFFER MD CM:CONSTR:REPORT OF CONSULTATION 02 04/11/19 0534 interface
--- NOTE | ~2019-04-09 | EKG ---
[place], [place] ELECTROCARDIOGRAM REPORT NAME: BRAD ERNST UNIT #: [id number] ROOM: 408 DOCTOR: MARLENE DRAFT REPORT BIRTHDATE: [address] [facility] Test Date: 2019-04-09 Test Time: 12:26:29 Pat Name: BRAD ERNST Department: Room: 408 Gender: F Dip Dyer: : 1935 Requested By: VIRIDIANA GAN DNP Order Number: [id number] Reading MD: Rafael Mejia Measurements Intervals [place] Rate: 92 P: 45 [place]: 189 QRS: 34 QRSD: 100 T: 90 QT: 363 QTc: 450 Interpretive Statements Sinus rhythm Nonspecific T abnormalities, lateral leads Compared to ECG 04/06/2019 14:33:03 T-wave abnormality now present Electronically Signed On 04-10-2019 12:12:06 PDT by Rafael Mejia CM:EKGRPT:ELECTROCARDIOGRAM REPORT 1226 1212 VIRIDIANA GAN DNP EPIPHANY DRAFT REPORT VIRIDIANA GAN DNP
[2019-04-09 12:24] LABS: BASO # 0.1 10*3/uL (0.0-0.1); BASO % 1.1 % (0.0-1.0); EOS # 0.2 10*3/uL (0.0-0.4); EOS % 2.7 % (1.0-4.0); HEMATOCRIT 42.3 % (37.0-47.0); HEMOGLOBIN 14.8 g/dl (12.0-16.0); LYMPH # 1.7 10*3/uL (1.3-4.4); MEAN CELL VOLUME 99.3 fl (81.0-99.0); MEAN CORPUSCULAR HGB 34.7 pg (27.0-31.0); MEAN PLATELET VOLUME 8.3 fl (9.6-12.3); MONO # 0.7 10*3/uL (0.1-1.0); MONO % 10.6 % (3.0-9.0); NEUT # 3.8 10*3/uL (2.3-7.9); NEUT % 58.4 % (47.0-73.0); PLATELET COUNT AUTOMATED 214 10*3/uL (130-400); RED BLOOD COUNT 4.26 10*6/uL (4.10-5.10); RED CELL DISTRI WIDTH 12.4 % (0-14.5); WHITE BLOOD COUNT 6.6 10*3/uL (4.8-10.8)
[2019-04-09 12:34] LABS: INTERNATIONAL NORM RATIO 0.9 (2.0-3.5)
[2019-04-09 12:39] LABS: ALBUMIN 3.9 gm/dl (3.1-4.5); ALKALINE PHOSPHATASE 108 U/L (45-117); BUN 16 mg/dl (7-24); CHLORIDE 110 mmol/L (98-107); CREATININE 1.16 mg/dL (0.55-1.02); LIPASE 403 U/L (73-393); POTASSIUM 4.2 mmol/L (3.5-5.1); SGOT/AST 14 IU/L (3-35); SGPT/ALT 23 U/L (12-78); SODIUM 138 mmol/L (136-145); TOTAL PROTEIN 6.8 gm/dL (6.4-8.2); TROPONIN I < 0.015 ng/ml (<0.045)
[2019-04-09 13:04] LABS: BILIRUBIN NEGATIVE (NEGATIVE); BLOOD NEGATIVE (NEGATIVE); CLARITY SL CLOUDY (CLEAR); COLOR YELLOW (YELLOW); GLUCOSE NEGATIVE (NEGATIVE); KETONE NEGATIVE (NEGATIVE); LEUKO ESTERASE 1+ (NEGATIVE); NITRITE NEGATIVE (NEGATIVE); PH 5.5 (5.0-9.0); SPECIFIC GRAVITY 1.015 (1.005-1.030); UROBILINOGEN 0.2 E.U./dl (0.2-1.0)
[2019-04-09 13:15] LABS: BACTERIA TRACE; MUCOUS TRACE
--- NOTE | 2019-04-09 15:30 | NUR ---
PT IN BED AT THIS TIME. FAMILY AT BEDSIDE. WILL CONTINUE TO MONITOR.
[2019-04-09] MEDS ORDERED: 'CLONIDINE0.1 MG PO (15:38)
--- NOTE | 2019-04-09 15:56 | NUR ---
PT STOOD UP QUICKLY. PT REPORTS FEELING "WEIRD". PT PLACED IN [place]. BLOOD PRESSURE 125/63.
--- NOTE | 2019-04-09 16:02 | NUR ---
PT TAKEN OUT OF [place]. SITTING IN BED AT THIS TIME. PT REPORTS, "I FEEL FINE."
--- NOTE | 2019-04-09 16:10 | NUR ---
ORTHOSTATICS COMPLETED UPON STANDING B/P 84/47. PT BECAME PALE AND FELT WEAK/DIZZY. PT PLACED BACK IN BED,. FAMILY AT BEDSIDE.
--- NOTE | 2019-04-09 16:15 | NUR ---
AUTO CUFF READING 48/20.... MANUAL BP TAKEN AT THIS TIME WITH A SYSTOLIC OF 50 VIRIDIANA GAN NP MADE AWARE. PENDING ORDER FOR FLUID BOLUS.
--- NOTE | 2019-04-09 17:07 | NUR ---
PT SITTING UP IN BED EATING DINNER, NO VOICED COMPLAINTS. FAMILY AT BEDSIDE.
--- NOTE | 2019-04-09 18:15 | NUR ---
A 84, admitted to , under the services of SURESH Ho MD with a diagnosis of ORTHOSTATIC HYPERTENSION. Chief complaint is ELEVATED BP AT HOME AND THEN ORTHOSTATIC IN ER. Patient arrived via stretcher from ER. Monitor applied. Initial assessment completed. Vital signs taken and recorded. See assessment for past medical history, medications and allergies. Patient and/or family oriented to unit. [facility]. STEFFEN HOSKINS
[2019-04-09] MEDS ORDERED: LISINOPRIL10 M1 PO (18:20)
[2019-04-09] MEDS ORDERED: COZAAR50 M1 PO (18:22)
--- NOTE | 2019-04-09 18:40 | NUR ---
Message left on Dr. Villanueva's cell to call hospital for admission orders.
--- NOTE | 2019-04-09 18:50 | NUR ---
Spoke with Dr. Villanueva admission orders received.
--- NOTE | 2019-04-09 19:00 | NUR ---
ANSWERING SERVICE WAS NOTIFIED OF DR. MELGAR CONSULT. RESPONSE OF NOTIFICATION WAS LEFT MESSAGE WITH FOOD CASHIER. STEFFEN HOSKINS
--- NOTE | 2019-04-09 19:03 | NUR ---
Return call received from Dr. Bonilla, notified of details of consult.
[2019-04-10] VITALS: BP 141/51
[2019-04-10 08:00] VITALS: BP 140/70
--- NOTE | 2019-04-10 08:00 | NUR ---
Patient resting quietly with no c/o discomfort. Respirations easy and regular. Vital signs stable. No overt distress. NESHA HERNADEZ
[2019-04-10] MEDS ORDERED: AMLODIPINE BESY10 MG PO (08:14)
--- NOTE | 2019-04-10 11:00 | NUR ---
Restaurant Shift Supervisor in to talk to patient. Patient states lives at home with a friend. There are 4 steps in the home. Physician: Dr. Fang Villanueva Pharmacy: [facility] Home health services: none Patient's level of ADLs: INDEPENDENT Patient has working utilities: yes DME: none Follow-up physician's appointment after d/c: she prefers to make her own follow up appt after discharge Does patient want to access PORTAL?: no Discharge plan discussed with patient. She is currently staying with a friend as her friend is able to take her blood pressure. She is independent in her ADLs and ambulation. She has an appt Apr 21 at [facility] to run a work up to see why this is happening to her. [facility] will try to get her testing done in one day but if they are not able to she will have to return on Apr 24. Discussed home health care services and she denies any home needs. When medically stable she will be discharged to home. Her daughter will transport on discharge. KOLTON RUBIO
[2019-04-10 12:00] VITALS: BP 135/57
[2019-04-10] MEDS ORDERED: LEXAPRO5 M1 PO (12:03)
--- NOTE | 2019-04-10 13:15 | NUR ---
LEAVING IN CARE OF SPOUSE.
== END 2019-04-10 13:15 | disposition home or self-care (01) | DRG 304 ==
LOC: ED 11:54 → 4E 17:14 → EDHOLD 17:14 → 4E 17:53
PROVIDERS: Nurse Practitioner Family; ADMIT Internal Medicine
DX: I16.9 Hypertensive crisis, unspecified (principal); G93.41 Metabolic encephalopathy; I25.10 Atherosclerotic heart disease of native coronary artery without angina pectoris; E03.9 Hypothyroidism, unspecified; M19.90 Unspecified osteoarthritis, unspecified site; E78.2 Mixed hyperlipidemia; Z96.1 Presence of intraocular lens; I13.0 Hypertensive heart and chronic kidney disease with heart failure and stage 1 through stage 4 chronic kidney disease, or unspecified chronic kidney disease; F41.1 Generalized anxiety disorder; N18.3 Chronic kidney disease, stage 3 (moderate); Z86.73 Personal history of transient ischemic attack (TIA), and cerebral infarction without residual deficits; Z88.5 Allergy status to narcotic agent; Z88.2 Allergy status to sulfonamides; Z90.49 Acquired absence of other specified parts of digestive tract; Z98.49 Cataract extraction status, unspecified eye; Z95.5 Presence of coronary angioplasty implant and graft; Z80.8 Family history of malignant neoplasm of other organs or systems; Z83.3 Family history of diabetes mellitus; Z82.49 Family history of ischemic heart disease and other diseases of the circulatory system; Z87.440 Personal history of urinary (tract) infections

== ENCOUNTER 2019-08-31 13:48 | Emergency (ER) | payer MEDICARE ==
[~2019-08-31] VITALS: Ht 160 cm; Wt 63.5 kg
[~2019-08-31 13:48] MED LIST changes: +'CLONIDINE0.1 MG PO; +AMLODIPINE BESY10 MG PO; +COZAAR50 M1 PO; +LEXAPRO5 M1 PO; +LISINOPRIL10 M1 PO
[2019-08-31] MEDS ORDERED: CEPHALEXIN500 M1 PO (16:37)
== END 2019-08-31 16:52 | disposition home or self-care (01) ==
LOC: ED 13:48
DX: S02.2XXA Fracture of nasal bones, initial encounter for closed fracture (principal); S00.83XA Contusion of other part of head, initial encounter; M19.90 Unspecified osteoarthritis, unspecified site; I25.10 Atherosclerotic heart disease of native coronary artery without angina pectoris; I11.0 Hypertensive heart disease with heart failure; I50.9 Heart failure, unspecified; Z88.5 Allergy status to narcotic agent; Z88.2 Allergy status to sulfonamides; Z79.899 Other long term (current) drug therapy; Z79.82 Long term (current) use of aspirin; Z90.49 Acquired absence of other specified parts of digestive tract; W01.0XXA Fall on same level from slipping, tripping and stumbling without subsequent striking against object, initial encounter; Y93.89 Activity, other specified; Y92.89 Other specified places as the place of occurrence of the external cause; Y99.9 Unspecified external cause status

== ENCOUNTER → 2019-09-02 | Outpatient (CLI) | payer MEDICARE ==
[~2019-09-02] MED LIST changes: +AMLODIPINE BESYL5 MG PO; +CEPHALEXIN500 M1 PO; +COREG6.25 MG PO
== END | disposition home or self-care (01) ==
LOC: RAD 14:06
DX: M25.541 Pain in joints of right hand (principal)

== ENCOUNTER 2019-09-14 01:23 | Inpatient (IN) | payer MEDICARE ==
[2019-09-14] VITALS (12 sets, daily range): BP systolic 104–215; BP diastolic 42–99
[~2019-09-14] VITALS: Ht 160 cm; Wt 64.2 kg
[~2019-09-14 01:23] MED LIST changes: -AMLODIPINE BESYL5 MG PO; -COREG6.25 MG PO
[2019-09-14 02:25] LABS: BASO # 0.1 10*3/uL (0.0-0.1); BASO % 1.1 % (0.0-1.0); EOS # 0.3 10*3/uL (0.0-0.4); EOS % 3.7 % (1.0-4.0); HEMATOCRIT 41.7 % (37.0-47.0); HEMOGLOBIN 13.8 g/dl (12.0-16.0); LYMPH # 2.1 10*3/uL (1.3-4.4); MEAN CELL VOLUME 97.2 fl (81.0-99.0); MEAN CORPUSCULAR HGB 32.2 pg (27.0-31.0); MEAN CORPUSCULAR HGB CONC 33.1 g/dl (33.0-37.0); MEAN PLATELET VOLUME 8.9 fl (9.6-12.3); MONO # 0.8 10*3/uL (0.1-1.0); MONO % 10.5 % (3.0-9.0); NEUT # 4.1 10*3/uL (2.3-7.9); NEUT % 55.4 % (47.0-73.0); PLATELET COUNT AUTOMATED 212 10*3/uL (130-400); RED BLOOD COUNT 4.29 10*6/uL (4.10-5.10); RED CELL DISTRI WIDTH 12.6 % (0-14.5); WHITE BLOOD COUNT 7.4 10*3/uL (4.8-10.8)
[2019-09-14 02:35] LABS: INTERNATIONAL NORM RATIO 0.9 (2.0-3.5)
[2019-09-14 02:41] LABS: ALBUMIN 3.6 gm/dl (3.1-4.5); ALKALINE PHOSPHATASE 149 U/L (45-117); BUN 17 mg/dl (7-24); CHLORIDE 114 mmol/L (98-107); POTASSIUM 4.2 mmol/L (3.5-5.1); SGOT/AST 24 IU/L (3-35); SGPT/ALT 33 U/L (12-78); SODIUM 142 mmol/L (136-145); TOTAL PROTEIN 6.6 gm/dL (6.4-8.2); TROPONIN I < 0.015 ng/ml (<0.045)
[2019-09-14] MEDS ORDERED: COREG6.25 MG PO (06:25)
[2019-09-15 08:00] VITALS: BP 108/56
[2019-09-15 13:00] VITALS: BP 115/48
[2019-09-15 16:00] VITALS: BP 142/50
[2019-09-15 20:00] VITALS: BP 115/48
[2019-09-16] VITALS: BP 142/50
[2019-09-16 08:00] VITALS: BP 138/62; BP 154/70
[2019-09-16] MEDS ORDERED: AMLODIPINE BESYL5 MG PO (10:29)
[2019-09-16 12:00] VITALS: BP 134/53
== END 2019-09-16 14:10 | disposition home or self-care (01) | DRG 305 ==
LOC: ED 01:23 → 4E 04:51 → EDHOLD 04:51 → 4E 05:13
PROVIDERS: Emergency Medicine; ADMIT Internal Medicine
DX: I16.1 Hypertensive emergency (principal); F33.0 Major depressive disorder, recurrent, mild; E03.9 Hypothyroidism, unspecified; I25.10 Atherosclerotic heart disease of native coronary artery without angina pectoris; N18.3 Chronic kidney disease, stage 3 (moderate); I13.0 Hypertensive heart and chronic kidney disease with heart failure and stage 1 through stage 4 chronic kidney disease, or unspecified chronic kidney disease; E78.2 Mixed hyperlipidemia; Z96.1 Presence of intraocular lens; Z98.49 Cataract extraction status, unspecified eye; Z90.49 Acquired absence of other specified parts of digestive tract; Z82.49 Family history of ischemic heart disease and other diseases of the circulatory system; Z95.5 Presence of coronary angioplasty implant and graft; Z88.2 Allergy status to sulfonamides; Z88.5 Allergy status to narcotic agent; Z79.82 Long term (current) use of aspirin; Z79.899 Other long term (current) drug therapy; Z83.3 Family history of diabetes mellitus; Z80.9 Family history of malignant neoplasm, unspecified

== ENCOUNTER 2020-02-17 15:20 | Emergency (ER) | payer MEDICARE ==
[~2020-02-17] VITALS: Ht 160 cm; Wt 68.0 kg
[~2020-02-17 15:20] MED LIST changes: +AMLODIPINE BESYL5 MG PO; +COREG6.25 MG PO
[2020-02-17 15:33] VITALS: BP 112/90
[2020-02-17 16:05] LABS: BASO # 0.1 10*3/uL (0.0-0.1); BASO % 0.7 % (0.0-1.0); EOS # 0.3 10*3/uL (0.0-0.4); EOS % 3.4 % (1.0-4.0); HEMATOCRIT 41.1 % (37.0-47.0); LYMPH # 1.8 10*3/uL (1.3-4.4); LYMPH % 24.5 % (27.0-41.0); MEAN CELL VOLUME 93.2 fl (81.0-99.0); MEAN CORPUSCULAR HGB CONC 34.3 g/dl (33.0-37.0); MEAN PLATELET VOLUME 8.9 fl (9.6-12.3); MONO # 0.8 10*3/uL (0.1-1.0); MONO % 10.6 % (3.0-9.0); NEUT # 4.4 10*3/uL (2.3-7.9); NEUT % 60.4 % (47.0-73.0); PLATELET COUNT AUTOMATED 235 10*3/uL (130-400); RED BLOOD COUNT 4.41 10*6/uL (4.10-5.10); RED CELL DISTRI WIDTH 12.3 % (0-14.5); WHITE BLOOD COUNT 7.4 10*3/uL (4.8-10.8)
[2020-02-17 16:19] LABS: CREATININE 1.53 mg/dL (0.55-1.02); POTASSIUM 4.4 mmol/L (3.5-5.1); TOTAL PROTEIN 7.4 gm/dL (6.4-8.2)
== END 2020-02-17 17:18 | disposition home or self-care (01) ==
LOC: ED 15:20
PROVIDERS: Nurse Practitioner Family
DX: S80.12XA Contusion of left lower leg, initial encounter (principal); M19.90 Unspecified osteoarthritis, unspecified site; I11.0 Hypertensive heart disease with heart failure; I50.9 Heart failure, unspecified; Z88.2 Allergy status to sulfonamides; Z88.8 Allergy status to other drugs, medicaments and biological substances; Z79.82 Long term (current) use of aspirin; Z90.49 Acquired absence of other specified parts of digestive tract; X58.XXXA Exposure to other specified factors, initial encounter; Y93.89 Activity, other specified; Y92.89 Other specified places as the place of occurrence of the external cause; Y99.8 Other external cause status

== ENCOUNTER 2021-06-07 07:55 | Emergency (ER) | payer MEDICARE ==
[~2021-06-07] VITALS: Ht 160 cm; Wt 65.8 kg
[2021-06-07 08:04] VITALS: BP 152/70
== END 2021-06-07 10:30 | disposition home or self-care (01) ==
LOC: ED 07:55
DX: S00.03XA Contusion of scalp, initial encounter (principal); Z88.8 Allergy status to other drugs, medicaments and biological substances; Z88.2 Allergy status to sulfonamides; Z79.899 Other long term (current) drug therapy; Z79.82 Long term (current) use of aspirin; W18.39XA Other fall on same level, initial encounter; Y93.89 Activity, other specified; Y92.89 Other specified places as the place of occurrence of the external cause; Y99.8 Other external cause status

== ENCOUNTER → 2021-06-13 | Outpatient (CLI) | payer MEDICARE | END | disposition home or self-care (01) | LOC: RAD 12:05 | PROVIDERS: ATTEND Internal Medicine | DX: R07.81 Pleurodynia (principal); R07.9 Chest pain, unspecified; M47.814 Spondylosis without myelopathy or radiculopathy, thoracic region ==

== ENCOUNTER 2021-07-13 09:13 | Emergency (ER) | payer MEDICARE ==
[~2021-07-13] VITALS: Ht 160 cm; Wt 65.8 kg
[2021-07-13] MEDS ORDERED: MILLIPRED5 MG PO (09:52)
[2021-07-13 09:53] LABS: BASO # 0.1 10*3/uL (0.0-0.1); EOS # 0.4 10*3/uL (0.0-0.4); EOS % 3.3 % (1.0-4.0); LYMPH # 2.2 10*3/uL (1.3-4.4); LYMPH % 20.3 % (27.0-41.0); MEAN CELL VOLUME 94.9 fl (81.0-99.0); MEAN CORPUSCULAR HGB CONC 33.7 g/dl (33.0-37.0); MEAN PLATELET VOLUME 8.9 fl (9.6-12.3); MONO # 1.3 10*3/uL (0.1-1.0); MONO % 11.4 % (3.0-9.0); NEUT # 6.8 10*3/uL (2.3-7.9); PLATELET COUNT AUTOMATED 158 10*3/uL (130-400); RED BLOOD COUNT 4.53 10*6/uL (4.10-5.10); RED CELL DISTRI WIDTH 12.9 % (0-14.5)
[2021-07-13 10:07] LABS: ALBUMIN 3.3 gm/dl (3.1-4.5); CREATININE 1.12 mg/dL (0.55-1.02); POTASSIUM 4.5 mmol/L (3.5-5.1); TOTAL PROTEIN 6.5 gm/dL (6.4-8.2)
[2021-07-13 10:11] LABS: BILIRUBIN Negative (Negative); BLOOD Negative (Negative); CLARITY Clear (Clear); COLOR Yellow (Yellow); GLUCOSE Negative (Negative); KETONE Negative (Negative); LEUKO ESTERASE 2+ (Negative); NITRITE Negative (Negative); SPECIFIC GRAVITY 1.015 (1.001-1.030); UROBILINOGEN 0.2 E.U./dl (0.0-1.0)
[2021-07-13 10:59] LABS: BACTERIA 4+; WBC 31-40 wbc/hpf (0-5)
[2021-07-13] MEDS ORDERED: TYLENOL325 M1 PO (12:17)
[2021-07-13] MEDS ORDERED: CEFDINIR300 MG PO (12:17)
[2021-07-13 12:28] VITALS: BP 134/66
== END 2021-07-13 13:15 | disposition home or self-care (01) ==
LOC: ED 09:13
PROVIDERS: Emergency Medicine
DX: N39.0 Urinary tract infection, site not specified (principal); R07.81 Pleurodynia

== ENCOUNTER → 2021-07-26 | Outpatient (CLI) | payer MEDICARE ==
[~2021-07-26] MED LIST changes: +CEFDINIR300 MG PO; +MILLIPRED5 MG PO; +TYLENOL325 M1 PO
[2021-07-26 11:47] LABS: HEMATOCRIT 44.8 % (37.0-47.0)
[2021-07-26 12:01] LABS: ALBUMIN 3.6 gm/dl (3.1-4.5); CREATININE 1.24 mg/dL (0.55-1.02); POTASSIUM 3.9 mmol/L (3.5-5.1)
[2021-07-26 15:12] LABS: BILIRUBIN Negative (Negative); BLOOD Negative (Negative); CLARITY Cloudy (Clear); COLOR Yellow (Yellow); GLUCOSE Negative (Negative); KETONE Negative (Negative); LEUKO ESTERASE 1+ (Negative); NITRITE Negative (Negative); SPECIFIC GRAVITY >= 1.030 (1.001-1.030); UROBILINOGEN 0.2 E.U./dl (0.0-1.0)
[2021-07-26 15:24] LABS: BACTERIA TRACE; RBC 0-2 rbc/hpf (0-2); YEAST 4+
[2021-07-27 08:07] LABS: CREATININE,URINE 249.7 mg/dL (Not Estab.)
== END | disposition home or self-care (01) ==
LOC: LAB 10:58
PROVIDERS: ATTEND Surgery
DX: N18.30 Chronic kidney disease, stage 3 unspecified (principal)

== ENCOUNTER 2021-08-04 10:38 | Emergency (ER) | payer MEDICARE ==
[~2021-08-04] VITALS: Ht 160 cm; Wt 67.1 kg
[2021-08-04 11:24] VITALS: BP 148/71
== END 2021-08-04 13:01 | disposition left against medical advice (07) ==
LOC: ED 10:38
DX: Z53.21 Procedure and treatment not carried out due to patient leaving prior to being seen by health care provider (principal)

== ENCOUNTER 2021-09-10 16:58 | Emergency (ER) | payer MEDICARE ==
[2021-09-10 17:05] VITALS: BP 157/89
[2021-09-10 18:04] LABS: BILIRUBIN Negative (Negative); BLOOD Trace-Lysed (Negative); CLARITY Turbid (Clear); COLOR Yellow (Yellow); GLUCOSE Negative (Negative); KETONE Trace (Negative); LEUKO ESTERASE 3+ (Negative); NITRITE Positive (Negative); SPECIFIC GRAVITY 1.015 (1.001-1.030); UROBILINOGEN 0.2 E.U./dl (0.0-1.0)
[2021-09-10 18:15] LABS: BACTERIA 3+; WBC TNTC wbc/hpf (0-5)
[2021-09-10] MEDS ORDERED: MACROBID100 M1 PO (18:31)
== END 2021-09-10 18:44 | disposition home or self-care (01) ==
LOC: ED 16:58
PROVIDERS: Nurse Practitioner Family
DX: N39.0 Urinary tract infection, site not specified (principal); Z88.2 Allergy status to sulfonamides; Z79.899 Other long term (current) drug therapy; Z90.49 Acquired absence of other specified parts of digestive tract; Z98.890 Other specified postprocedural states

== ENCOUNTER 2021-09-15 12:59 | Emergency (ER) | payer MEDICARE ==
[~2021-09-15] VITALS: Ht 160 cm; Wt 67.1 kg
[~2021-09-15 12:59] MED LIST changes: +MACROBID100 M1 PO
[2021-09-15 13:05] VITALS: BP 147/68
[2021-09-15 13:48] LABS: BASO # 0.1 10*3/uL (0.0-0.1); BASO % 0.6 % (0.0-1.0); EOS # 0.2 10*3/uL (0.0-0.4); EOS % 1.4 % (1.0-4.0); HEMATOCRIT 40.9 % (37.0-47.0); LYMPH # 0.8 10*3/uL (1.3-4.4); LYMPH % 7.7 % (27.0-41.0); MEAN CELL VOLUME 90.7 fl (81.0-99.0); MEAN CORPUSCULAR HGB 31.5 pg (27.0-31.0); MEAN CORPUSCULAR HGB CONC 34.7 g/dl (33.0-37.0); MEAN PLATELET VOLUME 8.6 fl (9.6-12.3); MONO # 0.9 10*3/uL (0.1-1.0); MONO % 8.1 % (3.0-9.0); NEUT # 8.9 10*3/uL (2.3-7.9); NEUT % 80.9 % (47.0-73.0); PLATELET COUNT AUTOMATED 233 10*3/uL (130-400); RED BLOOD COUNT 4.51 10*6/uL (4.10-5.10); RED CELL DISTRI WIDTH 12.8 % (0-14.5)
[2021-09-15 14:04] LABS: ALKALINE PHOSPHATASE 74 U/L (45-117); BUN 14 mg/dl (7-24); CHLORIDE 113 mmol/L (98-107); CREATININE 1.07 mg/dL (0.55-1.02); POTASSIUM 3.3 mmol/L (3.5-5.1); SGOT/AST 14 IU/L (3-35); SGPT/ALT 26 U/L (12-78); SODIUM 141 mmol/L (136-145); TOTAL PROTEIN 6.3 gm/dL (6.4-8.2)
[2021-09-15 14:30] LABS: BILIRUBIN Negative (Negative); BLOOD Negative (Negative); CLARITY Clear (Clear); COLOR Yellow (Yellow); GLUCOSE Negative (Negative); KETONE Trace (Negative); LEUKO ESTERASE 2+ (Negative); NITRITE Negative (Negative); PH 5.5 (4.5-8.0); SPECIFIC GRAVITY 1.015 (1.001-1.030); UROBILINOGEN 0.2 E.U./dl (0.0-1.0)
[2021-09-15 15:00] LABS: WBC 21-30 wbc/hpf (0-5)
[2021-09-15 15:01] LABS: BACTERIA 2+
== END 2021-09-15 18:20 | disposition home or self-care (01) ==
LOC: ED 12:59
PROVIDERS: Emergency Medicine
DX: N81.10 Cystocele, unspecified (principal); I25.10 Atherosclerotic heart disease of native coronary artery without angina pectoris; E78.5 Hyperlipidemia, unspecified; E03.9 Hypothyroidism, unspecified; I13.0 Hypertensive heart and chronic kidney disease with heart failure and stage 1 through stage 4 chronic kidney disease, or unspecified chronic kidney disease; N18.30 Chronic kidney disease, stage 3 unspecified; I50.30 Unspecified diastolic (congestive) heart failure; Z88.2 Allergy status to sulfonamides; Z79.899 Other long term (current) drug therapy; Z90.49 Acquired absence of other specified parts of digestive tract; Z98.890 Other specified postprocedural states

== ENCOUNTER → 2021-09-22 | Outpatient (CLI) | payer MEDICARE | END | disposition home or self-care (01) | LOC: US 14:30 | PROVIDERS: ATTEND Internal Medicine | DX: R39.15 Urgency of urination (principal); R33.9 Retention of urine, unspecified ==

== ENCOUNTER → 2021-10-30 | Outpatient (CLI) | payer MEDICARE | END | disposition home or self-care (01) | LOC: RAD 09:22 → CARD 10:30 | PROVIDERS: ATTEND Internal Medicine | DX: M85.88 Other specified disorders of bone density and structure, other site (principal); I35.8 Other nonrheumatic aortic valve disorders; I34.8 Other nonrheumatic mitral valve disorders ==

== ENCOUNTER 2022-07-24 23:57 | Emergency (ER) | payer MEDICARE ==
[~2022-07-24] VITALS: Ht 160 cm; Wt 63.5 kg
[2022-07-25 00:05] VITALS: BP 163/81
[2022-07-25] MEDS ORDERED: VIBRAMYCIN100 MG PO (00:26)
== END 2022-07-25 00:51 | disposition home or self-care (01) ==
LOC: ED 23:57
DX: L03.113 Cellulitis of right upper limb (principal); Z88.2 Allergy status to sulfonamides; Z90.49 Acquired absence of other specified parts of digestive tract; Z90.89 Acquired absence of other organs; Z98.49 Cataract extraction status, unspecified eye; Z96.1 Presence of intraocular lens

== ENCOUNTER → 2022-07-25 | Outpatient (CLI) | payer MEDICARE ==
[~2022-07-25] MED LIST changes: +VIBRAMYCIN100 MG PO
== END | disposition home or self-care (01) ==
LOC: US 10:44
PROVIDERS: ATTEND Internal Medicine
DX: R22.31 Localized swelling, mass and lump, right upper limb (principal)

== ENCOUNTER → 2022-08-17 | Outpatient (CLI) | payer MEDICARE | END | disposition home or self-care (01) | LOC: ORTHO 12:51 | PROVIDERS: ATTEND Orthopaedic Surgery | DX: M19.011 Primary osteoarthritis, right shoulder (principal) ==

== ENCOUNTER → 2022-11-09 | Outpatient (CLI) | payer MEDICARE | END | disposition home or self-care (01) | LOC: ORTHO 00:11 | PROVIDERS: ATTEND Orthopaedic Surgery | DX: M25.561 Pain in right knee (principal); M25.562 Pain in left knee ==

== ENCOUNTER 2022-11-29 08:29 | Emergency (ER) | payer MEDICARE ==
[~2022-11-29] VITALS: Ht 160 cm; Wt 63.5 kg
[2022-11-29 08:46] VITALS: BP 167/73
[2022-11-29] MEDS ORDERED: TRAMADOL HCL50 MG PO (09:51)
== END 2022-11-29 10:10 | disposition home or self-care (01) ==
LOC: ED 08:29
DX: S93.401A Sprain of unspecified ligament of right ankle, initial encounter (principal); I34.1 Nonrheumatic mitral (valve) prolapse; M19.90 Unspecified osteoarthritis, unspecified site; I25.10 Atherosclerotic heart disease of native coronary artery without angina pectoris; I50.9 Heart failure, unspecified; Z87.442 Personal history of urinary calculi; M79.7 Fibromyalgia; I13.0 Hypertensive heart and chronic kidney disease with heart failure and stage 1 through stage 4 chronic kidney disease, or unspecified chronic kidney disease; N18.9 Chronic kidney disease, unspecified; Z88.2 Allergy status to sulfonamides; Z90.49 Acquired absence of other specified parts of digestive tract; Z98.890 Other specified postprocedural states; W19.XXXA Unspecified fall, initial encounter; Y93.89 Activity, other specified; Y92.009 Unspecified place in unspecified non-institutional (private) residence as the place of occurrence of the external cause; Y99.8 Other external cause status

== ENCOUNTER 2023-02-12 14:01 | Inpatient (IN) | payer MEDICARE ==
[~2023-02-12] VITALS: Ht 160 cm; Wt 64.2 kg
[~2023-02-12 14:01] MED LIST changes: +TRAMADOL HCL50 MG PO
[2023-02-12 14:16] VITALS: BP 132/65
[2023-02-12 15:20] LABS: BASO % 0.2 % (0.0-1.0); HEMATOCRIT 43.1 % (37.0-47.0); LYMPH # 0.8 10*3/uL (1.3-4.4); LYMPH % 12.8 % (27.0-41.0); MEAN CELL VOLUME 94.9 fl (81.0-99.0); MEAN CORPUSCULAR HGB 32.6 pg (27.0-31.0); MEAN CORPUSCULAR HGB CONC 34.3 g/dl (33.0-37.0); MONO # 0.6 10*3/uL (0.1-1.0); MONO % 8.4 % (3.0-9.0); NEUT # 5.1 10*3/uL (2.3-7.9); PLATELET COUNT AUTOMATED 258 10*3/uL (130-400); RED BLOOD COUNT 4.54 10*6/uL (4.10-5.10); RED CELL DISTRI WIDTH 13.8 % (0-14.5); WHITE BLOOD COUNT 6.5 10*3/uL (4.8-10.8)
[2023-02-12 15:37] LABS: POTASSIUM 4.6 mmol/L (3.4-5.1); TOTAL PROTEIN 6.8 gm/dL (6.0-8.0)
[2023-02-12] MEDS ORDERED: OMEPRAZOLE MAGN20 MG PO (16:18)
[2023-02-12 16:20] LABS: ACT PARTIAL THROMBO TIME 33.1 SECONDS (20.0-32.1)
[2023-02-12] MEDS ORDERED: HYOSCYAMINE0.125 MG PO (16:20)
[2023-02-12] MEDS ORDERED: MECLIZINE HYD12.5 MG PO (16:20)
[2023-02-12] MEDS ORDERED: PRESERVISION A1 EAC4 PO (16:22)
[2023-02-12 18:31] LABS: BILIRUBIN Negative (Negative); BLOOD Trace-Intact (Negative); CLARITY Cloudy (Clear); COLOR Yellow (Yellow); GLUCOSE Negative (Negative); KETONE Negative (Negative); LEUKO ESTERASE 2+ (Negative); NITRITE Negative (Negative); SPECIFIC GRAVITY 1.025 (1.001-1.030)
[2023-02-12 18:37] VITALS: BP 132/70
[2023-02-12 18:41] LABS: WBC 21-30 wbc/hpf (0-5)
[2023-02-12 18:42] LABS: BACTERIA 2+; EPITHELIAL CELLS 0-2
[2023-02-12 20:00] VITALS: BP 136/52
[2023-02-12 20:05] VITALS: BP 136/52
[2023-02-13] VITALS: BP 133/51
[2023-02-13 06:31] LABS: BASO % 0.2 % (0.0-1.0); EOS % 0.7 % (1.0-4.0); HEMATOCRIT 39.1 % (37.0-47.0); LYMPH # 1.3 10*3/uL (1.3-4.4); LYMPH % 29.4 % (27.0-41.0); MEAN CELL VOLUME 96.5 fl (81.0-99.0); MEAN CORPUSCULAR HGB 32.1 pg (27.0-31.0); MEAN CORPUSCULAR HGB CONC 33.2 g/dl (33.0-37.0); MEAN PLATELET VOLUME 9.4 fl (9.6-12.3); MONO # 0.7 10*3/uL (0.1-1.0); MONO % 14.8 % (3.0-9.0); NEUT # 2.4 10*3/uL (2.3-7.9); NEUT % 54.5 % (47.0-73.0); PLATELET COUNT AUTOMATED 212 10*3/uL (130-400); RED BLOOD COUNT 4.05 10*6/uL (4.10-5.10); RED CELL DISTRI WIDTH 13.8 % (0-14.5); WHITE BLOOD COUNT 4.5 10*3/uL (4.8-10.8)
[2023-02-13 08:00] VITALS: BP 132/58
[2023-02-13 12:00] VITALS: BP 118/50
[2023-02-13 15:59] VITALS: BP 123/50
[2023-02-13 20:00] VITALS: BP 129/48
[2023-02-14] VITALS: BP 93/52
[2023-02-14 05:13] LABS: BUN 13 mg/dl (9-23); CHLORIDE 112 mmol/L (98-107)
[2023-02-14 05:17] LABS: POTASSIUM 5.2 mmol/L (3.4-5.1)
[2023-02-14 06:16] LABS: BASO % 0.4 % (0.0-1.0); EOS # 0.1 10*3/uL (0.0-0.4); EOS % 1.4 % (1.0-4.0); HEMATOCRIT 38.3 % (37.0-47.0); LYMPH # 1.6 10*3/uL (1.3-4.4); LYMPH % 30.8 % (27.0-41.0); MEAN CELL VOLUME 97.7 fl (81.0-99.0); MEAN CORPUSCULAR HGB 32.1 pg (27.0-31.0); MEAN CORPUSCULAR HGB CONC 32.9 g/dl (33.0-37.0); MEAN PLATELET VOLUME 9.1 fl (9.6-12.3); MONO # 0.7 10*3/uL (0.1-1.0); MONO % 13.1 % (3.0-9.0); NEUT # 2.7 10*3/uL (2.3-7.9); NEUT % 53.9 % (47.0-73.0); PLATELET COUNT AUTOMATED 223 10*3/uL (130-400); RED BLOOD COUNT 3.92 10*6/uL (4.10-5.10); RED CELL DISTRI WIDTH 14.1 % (0-14.5)
[2023-02-14 08:00] VITALS: BP 152/57
[2023-02-14] MEDS ORDERED: ROBITUSSIN DM 101 OZ PO (10:48)
== END 2023-02-14 12:31 | disposition home or self-care (01) | DRG 391 ==
LOC: ED 14:01 → EDHOLD 16:11 → 4E 16:11
PROVIDERS: Emergency Medicine; ADMIT Internal Medicine; ATTEND Internal Medicine
DX: A08.39 Other viral enteritis (principal); G93.41 Metabolic encephalopathy; N17.9 Acute kidney failure, unspecified; F33.0 Major depressive disorder, recurrent, mild; E86.0 Dehydration; I10 Essential (primary) hypertension; E03.9 Hypothyroidism, unspecified; K21.00 Gastro-esophageal reflux disease with esophagitis, without bleeding; S61.512A Laceration without foreign body of left wrist, initial encounter; S61.511A Laceration without foreign body of right wrist, initial encounter; W18.39XA Other fall on same level, initial encounter; Y93.89 Activity, other specified; Z88.2 Allergy status to sulfonamides; Z90.49 Acquired absence of other specified parts of digestive tract; Z95.5 Presence of coronary angioplasty implant and graft; Z83.3 Family history of diabetes mellitus; Z82.49 Family history of ischemic heart disease and other diseases of the circulatory system; Y92.098 Other place in other non-institutional residence as the place of occurrence of the external cause; Y99.8 Other external cause status

== ENCOUNTER 2023-03-30 20:04 | Emergency (ER) | payer MEDICARE ==
[~2023-03-30] VITALS: Ht 154.9 cm; Wt 72.6 kg
[~2023-03-30 20:04] MED LIST changes: +HYOSCYAMINE0.125 MG PO; +MECLIZINE HYD12.5 MG PO; +OMEPRAZOLE MAGN20 MG PO; +PRESERVISION A1 EAC4 PO; +ROBITUSSIN DM 101 OZ PO
[2023-03-30] MEDS ORDERED: OYSTER SHELL 51 EAC5 PO (20:14)
[2023-03-30] MEDS ORDERED: PREDNISONE5 MG PO (20:15)
[2023-03-30 20:16] VITALS: BP 186/86
== END 2023-03-30 20:49 | disposition home or self-care (01) ==
LOC: ED 20:04
DX: S51.812A Laceration without foreign body of left forearm, initial encounter (principal); M19.90 Unspecified osteoarthritis, unspecified site; I25.10 Atherosclerotic heart disease of native coronary artery without angina pectoris; I50.9 Heart failure, unspecified; I13.0 Hypertensive heart and chronic kidney disease with heart failure and stage 1 through stage 4 chronic kidney disease, or unspecified chronic kidney disease; N18.9 Chronic kidney disease, unspecified; M79.7 Fibromyalgia; Z87.442 Personal history of urinary calculi; Z88.2 Allergy status to sulfonamides; Z90.49 Acquired absence of other specified parts of digestive tract; Z98.890 Other specified postprocedural states; X58.XXXA Exposure to other specified factors, initial encounter; Y93.89 Activity, other specified; Y92.009 Unspecified place in unspecified non-institutional (private) residence as the place of occurrence of the external cause; Y99.8 Other external cause status

== ENCOUNTER → 2023-08-01 | Outpatient (CLI) | payer MEDICARE ==
[~2023-08-01] MED LIST changes: +OYSTER SHELL 51 EAC5 PO; +PREDNISONE5 MG PO
== END | disposition home or self-care (01) ==
LOC: MRI 10:57
PROVIDERS: ATTEND Internal Medicine
DX: I67.82 Cerebral ischemia (principal); R42 Dizziness and giddiness; G31.9 Degenerative disease of nervous system, unspecified

== ENCOUNTER → 2024-02-10 | Outpatient (CLI) | payer MEDICARE | END | disposition home or self-care (01) | LOC: ORTHO 01:58 | PROVIDERS: ATTEND Orthopaedic Surgery | DX: M25.552 Pain in left hip (principal) ==

== ENCOUNTER 2024-05-27 11:27 | Inpatient (IN) | payer MEDICARE ==
[~2024-05-27] VITALS: Ht 160 cm; Wt 57.2 kg
[2024-05-27 11:42] VITALS: BP 147/75
[2024-05-27 12:17] LABS: HEMATOCRIT 43.5 % (37.0-47.0); MEAN CELL VOLUME 92.9 fl (81.0-99.0); MEAN CORPUSCULAR HGB 31.6 pg (27.0-31.0); MEAN PLATELET VOLUME 8.6 fl (9.6-12.3); PLATELET COUNT AUTOMATED 205 10*3/uL (130-400); RED BLOOD COUNT 4.68 10*6/uL (4.10-5.10); RED CELL DISTRI WIDTH 13.2 % (0-14.5); WHITE BLOOD COUNT 12.3 10*3/uL (4.8-10.8)
[2024-05-27 12:19] LABS: MANUAL DIFF REFLEX YES
[2024-05-27 12:29] LABS: BILIRUBIN Negative (Negative); BLOOD Negative (Negative); CLARITY Cloudy (Clear); COLOR Yellow (Yellow); GLUCOSE Negative (Negative); KETONE Negative (Negative); LEUKO ESTERASE 3+ (Negative); NITRITE Positive (Negative); PH 5.5 (4.5-8.0); SPECIFIC GRAVITY 1.015 (1.001-1.030); UROBILINOGEN 0.2 E.U./dl (0.0-1.0)
[2024-05-27 12:45] LABS: ALKALINE PHOSPHATASE 129 U/L (46-116); BUN 11 mg/dl (9-23); CHLORIDE 103 mmol/L (98-107); POTASSIUM 3.8 mmol/L (3.4-5.1); SGPT/ALT 88 U/L (5-49)
[2024-05-27 12:49] LABS: BACTERIA 4+; WBC TNTC wbc/hpf (0-5)
[2024-05-27 13:01] LABS: BASOPHILS 1 % (0-1); PLATELET SUFFICIENCY NORMAL (NORMAL); SCHISTOCYTES FEW; TOTAL CELLS COUNTED 100 #CELLS
[2024-05-27] MEDS ORDERED: Ceftriaxone Sodium 1 GM/10 ML SYR IV ONE (13:35)
[2024-05-27] MEDS ORDERED: SODIUM CHLORIDE 0.9% 1,000 ML IV ONE ×2 (13:35→17:10)
[2024-05-27] MEDS ORDERED: PREDNISONE10 MG PO (14:49)
[2024-05-27 16:40] VITALS: BP 169/61
[2024-05-27] MEDS ORDERED: Meclizine Hydrochloride 12.5 MG TAB PO PRN (17:05)
[2024-05-27 20:00] VITALS: BP 141/46
[2024-05-27] MEDS ORDERED: ASPIRIN, CHEWABLE 81 MG TAB PO SCH (22:00)
[2024-05-28] VITALS: BP 159/59
[2024-05-28] MEDS ORDERED: Levothyroxine Sodium 75 MCG TAB PO SCH (06:00)
[2024-05-28] MEDS ORDERED: OMEPRAZOLE 20 MG CAP PO SCH (06:00)
[2024-05-28 06:07] LABS: BASO # 0.1 10*3/uL (0.0-0.1); BASO % 0.8 % (0.0-1.0); EOS # 0.2 10*3/uL (0.0-0.4); EOS % 2.6 % (1.0-4.0); MEAN CORPUSCULAR HGB 31.7 pg (27.0-31.0); MEAN CORPUSCULAR HGB CONC 33.7 g/dl (33.0-37.0); MEAN PLATELET VOLUME 8.9 fl (9.6-12.3); MONO % 11.8 % (3.0-9.0); NEUT # 5.6 10*3/uL (2.3-7.9); NEUT % 66.9 % (47.0-73.0); PLATELET COUNT AUTOMATED 208 10*3/uL (130-400); RED BLOOD COUNT 4.36 10*6/uL (4.10-5.10); RED CELL DISTRI WIDTH 13.7 % (0-14.5); WHITE BLOOD COUNT 8.4 10*3/uL (4.8-10.8)
[2024-05-28 06:51] LABS: BUN 10 mg/dl (9-23); CHLORIDE 109 mmol/L (98-107)
[2024-05-28 06:52] LABS: POTASSIUM 4.9 mmol/L (3.4-5.1)
[2024-05-28] MEDS ORDERED: predniSONE 10 MG TAB PO SCH ×2 (07:00→10:00)
[2024-05-28 08:00] VITALS: BP 160/70
[2024-05-28] MEDS ORDERED: Losartan Potassium 100 MG TABLET PO SCH (10:00)
[2024-05-28] MEDS ORDERED: amLODIPine besylate 5 MG TAB PO SCH (10:00)
[2024-05-28] MEDS ORDERED: HYOSCYAMINE SULFATE 0.125 MG TAB PO SCH (10:00)
[2024-05-28] MEDS ORDERED: Ceftriaxone Sodium 1 GM in SYRINGE INFUSION 10 ML IV SCH (10:00)
[2024-05-28 12:00] VITALS: BP 158/62
[2024-05-28 16:00] VITALS: BP 160/70
[2024-05-28 20:00] VITALS: BP 148/62
[2024-05-29] VITALS: BP 162/64
[2024-05-29 06:31] LABS: BASO # 0.1 10*3/uL (0.0-0.1); BASO % 0.7 % (0.0-1.0); EOS # 0.2 10*3/uL (0.0-0.4); EOS % 2.5 % (1.0-4.0); HEMATOCRIT 41.7 % (37.0-47.0); MEAN CELL VOLUME 94.1 fl (81.0-99.0); MEAN CORPUSCULAR HGB 31.6 pg (27.0-31.0); MEAN CORPUSCULAR HGB CONC 33.6 g/dl (33.0-37.0); MEAN PLATELET VOLUME 8.9 fl (9.6-12.3); MONO # 0.9 10*3/uL (0.1-1.0); MONO % 11.1 % (3.0-9.0); NEUT # 5.2 10*3/uL (2.3-7.9); PLATELET COUNT AUTOMATED 204 10*3/uL (130-400); RED BLOOD COUNT 4.43 10*6/uL (4.10-5.10); RED CELL DISTRI WIDTH 13.3 % (0-14.5); WHITE BLOOD COUNT 7.7 10*3/uL (4.8-10.8)
[2024-05-29 06:52] LABS: ALKALINE PHOSPHATASE 109 U/L (46-116); BUN 8 mg/dl (9-23); CHLORIDE 108 mmol/L (98-107); SGPT/ALT 58 U/L (5-49); TOTAL PROTEIN 5.4 gm/dL (6.0-8.0)
[2024-05-29 07:13] LABS: POTASSIUM 3.6 mmol/L (3.4-5.1)
[2024-05-29 08:00] VITALS: BP 193/73
[2024-05-29 13:00] VITALS: BP 134/58
[2024-05-29 16:00] VITALS: BP 146/51
[2024-05-29 20:00] VITALS: BP 178/74
[2024-05-30] VITALS: BP 168/64; BP 173/68
[2024-05-30 08:00] VITALS: BP 1173/65
[2024-05-30] MEDS ORDERED: FOAM BANDAGE 5X5 T ONE (08:43)
[2024-05-30] MEDS ORDERED: METOPROLOL SUCCINATE XR 25 MG TAB PO SCH (10:00)
[2024-05-30 12:00] VITALS: BP 158/75
[2024-05-30 16:00] VITALS: BP 145/53
[2024-05-30 20:00] VITALS: BP 143/67; BP 148/68
[2024-05-31] VITALS: BP 152/62
[2024-05-31 08:00] VITALS: BP 143/46
[2024-05-31] MEDS ORDERED: PREDNISONE10 MG PO (09:03)
[2024-05-31] MEDS ORDERED: METOPROLOL SUCC25 M2 PO (09:03)
[2024-05-31] MEDS ORDERED: ADHESIVE BANDAGE 1 EACH BANDAGE T ONE (09:08)
[2024-05-31] MEDS ORDERED: Cefuroxime Axetil 250 MG TAB PO ONE (10:45)
[2024-05-31 12:00] VITALS: BP 139/53
== END 2024-05-31 12:45 | disposition home or self-care (01) | DRG 872 ==
LOC: ED 11:27 → EDHOLD 13:40 → 4E 13:40 → EDHOLD 13:41 → 4E 14:28
PROVIDERS: Physician Assistant Medical; ADMIT Internal Medicine; ATTEND Internal Medicine
DX: A41.9 Sepsis, unspecified organism (principal); N17.9 Acute kidney failure, unspecified; N30.00 Acute cystitis without hematuria; B96.20 Unspecified Escherichia coli [E. coli] as the cause of diseases classified elsewhere; E03.9 Hypothyroidism, unspecified; M35.3 Polymyalgia rheumatica; N18.30 Chronic kidney disease, stage 3 unspecified; I12.9 Hypertensive chronic kidney disease with stage 1 through stage 4 chronic kidney disease, or unspecified chronic kidney disease; X58.XXXA Exposure to other specified factors, initial encounter; Y93.89 Activity, other specified; Y99.8 Other external cause status; Z95.0 Presence of cardiac pacemaker; Y92.238 Other place in hospital as the place of occurrence of the external cause; Z88.2 Allergy status to sulfonamides; Z90.49 Acquired absence of other specified parts of digestive tract; Z95.5 Presence of coronary angioplasty implant and graft; Z82.49 Family history of ischemic heart disease and other diseases of the circulatory system; Z83.3 Family history of diabetes mellitus; S61.411A Laceration without foreign body of right hand, initial encounter

== ENCOUNTER → 2024-07-09 | Day surgery (SDC) | payer MEDICARE ==
[~2024-07-09] VITALS: Ht 154.9 cm; Wt 56.2 kg
[~2024-07-09] MED LIST changes: +BUPIVACAINE 0.25% 10 ML VIAL IJ ONE; +BUPIVACAINE 0.25% 10 ML VIAL ONE; +Betamethasone ACE/Betamethas 30 MG/5 ML VIAL IJ ONE; +Lidocaine Hydrochloride 5 ML AMP IJ ONE; +Lidocaine Hydrochloride 5 ML AMP ONE; +METOPROLOL SUCC25 M2 PO; +PREDNISONE10 MG PO
[2024-07-09 10:13] VITALS: BP 163/68
[2024-07-09 11:15] VITALS: BP 186/82
[2024-07-09 11:20] VITALS: BP 195/82
[2024-07-09 11:25] VITALS: BP 194/82
[2024-07-09 11:30] VITALS: BP 189/79
== END | disposition home or self-care (01) ==
LOC: SDC 07-07 08:00
PROVIDERS: ATTEND Orthopaedic Surgery
DX: M16.12 Unilateral primary osteoarthritis, left hip (principal); M54.42 Lumbago with sciatica, left side; I13.0 Hypertensive heart and chronic kidney disease with heart failure and stage 1 through stage 4 chronic kidney disease, or unspecified chronic kidney disease; I50.9 Heart failure, unspecified; N18.9 Chronic kidney disease, unspecified; I25.10 Atherosclerotic heart disease of native coronary artery without angina pectoris; Z95.5 Presence of coronary angioplasty implant and graft; E03.9 Hypothyroidism, unspecified; M79.7 Fibromyalgia; Z85.828 Personal history of other malignant neoplasm of skin; E78.5 Hyperlipidemia, unspecified; Z90.49 Acquired absence of other specified parts of digestive tract; Z95.0 Presence of cardiac pacemaker; Z79.899 Other long term (current) drug therapy

== ENCOUNTER 2024-09-29 13:25 | Emergency (ER) | payer MEDICARE ==
[~2024-09-29] VITALS: Ht 154.9 cm; Wt 54.4 kg
[~2024-09-29 13:25] MED LIST changes: -BUPIVACAINE 0.25% 10 ML VIAL IJ ONE; -BUPIVACAINE 0.25% 10 ML VIAL ONE; -Betamethasone ACE/Betamethas 30 MG/5 ML VIAL IJ ONE; +DULOXETINE HCL30 MG PO; +ELIQUIS2.5 M1 PO; -Lidocaine Hydrochloride 5 ML AMP IJ ONE; -Lidocaine Hydrochloride 5 ML AMP ONE
[2024-09-29 13:34] VITALS: BP 155/70
[2024-09-29 14:25] LABS: BASO % 0.3 % (0.0-1.0); HEMATOCRIT 43.4 % (37.0-47.0); MEAN CELL VOLUME 95.4 fl (81.0-99.0); MEAN CORPUSCULAR HGB 31.4 pg (27.0-31.0); MEAN CORPUSCULAR HGB CONC 32.9 g/dl (33.0-37.0); MEAN PLATELET VOLUME 8.7 fl (9.6-12.3); MONO # 0.5 10*3/uL (0.1-1.0); MONO % 4.4 % (3.0-9.0); NEUT # 9.2 10*3/uL (2.3-7.9); NEUT % 89.7 % (47.0-73.0); PLATELET COUNT AUTOMATED 159 10*3/uL (130-400); RED BLOOD COUNT 4.55 10*6/uL (4.10-5.10); RED CELL DISTRI WIDTH 13.2 % (0-14.5); WHITE BLOOD COUNT 10.3 10*3/uL (4.8-10.8)
[2024-09-29 14:48] LABS: POTASSIUM 4.7 mmol/L (3.4-5.1); TOTAL PROTEIN 5.8 gm/dL (6.0-8.0)
[2024-09-29 14:51] LABS: FREE T4 1.1 ng/dl (0.89-1.76)
== END 2024-09-29 17:20 | disposition home or self-care (01) ==
LOC: ED 13:25
PROVIDERS: Emergency Medicine
DX: S80.12XA Contusion of left lower leg, initial encounter (principal); R30.0 Dysuria; R53.1 Weakness; I48.91 Unspecified atrial fibrillation; M19.90 Unspecified osteoarthritis, unspecified site; I25.10 Atherosclerotic heart disease of native coronary artery without angina pectoris; I50.9 Heart failure, unspecified; I13.0 Hypertensive heart and chronic kidney disease with heart failure and stage 1 through stage 4 chronic kidney disease, or unspecified chronic kidney disease; M79.89 Other specified soft tissue disorders; N18.9 Chronic kidney disease, unspecified; Z88.2 Allergy status to sulfonamides; Z90.49 Acquired absence of other specified parts of digestive tract; Z98.890 Other specified postprocedural states; Z95.5 Presence of coronary angioplasty implant and graft; Z87.442 Personal history of urinary calculi; X58.XXXA Exposure to other specified factors, initial encounter; Y93.89 Activity, other specified; Y92.89 Other specified places as the place of occurrence of the external cause; Y99.8 Other external cause status

== ENCOUNTER → 2024-10-13 | Outpatient (CLI) | payer MEDICARE | END | disposition home or self-care (01) | LOC: CT 10-12 14:00 | PROVIDERS: ATTEND Orthopaedic Surgery | DX: M47.817 Spondylosis without myelopathy or radiculopathy, lumbosacral region (principal); M48.07 Spinal stenosis, lumbosacral region; M25.78 Osteophyte, vertebrae; M25.552 Pain in left hip; M54.50 Low back pain, unspecified ==

== ENCOUNTER 2024-12-23 12:32 | Inpatient (IN) | payer MEDICARE ==
[~2024-12-23] VITALS: Ht 154.9 cm; Wt 62.7 kg
[~2024-12-23 12:32] MED LIST changes: +AMOX-CLAV 875-1 EACH PO; +CETRAXAL1 EACH OT; +TAMSULOSIN HCL0.4 MG PO
[2024-12-23 12:43] VITALS: BP 118/57
[2024-12-23] MEDS ORDERED: SODIUM CHLORIDE 0.9% 1,000 ML IV ONE ×2 (13:15→14:40)
[2024-12-23 13:46] LABS: BASO # 0.1 10*3/uL (0.0-0.1); BASO % 0.5 % (0.0-1.0); EOS # 0.3 10*3/uL (0.0-0.4); HEMATOCRIT 39.6 % (37.0-47.0); MEAN CELL VOLUME 94.5 fl (81.0-99.0); MEAN CORPUSCULAR HGB CONC 33.8 g/dl (33.0-37.0); MEAN PLATELET VOLUME 8.4 fl (9.6-12.3); MONO % 11.2 % (3.0-9.0); NEUT # 6.1 10*3/uL (2.3-7.9); NEUT % 66.4 % (47.0-73.0); PLATELET COUNT AUTOMATED 238 10*3/uL (130-400); RED BLOOD COUNT 4.19 10*6/uL (4.10-5.10); RED CELL DISTRI WIDTH 13.4 % (0-14.5); WHITE BLOOD COUNT 9.2 10*3/uL (4.8-10.8)
[2024-12-23 13:55] VITALS: BP 125/55
[2024-12-23 14:01] LABS: ACT PARTIAL THROMBO TIME 23.6 SECONDS (20.0-32.1)
[2024-12-23 14:07] LABS: POTASSIUM 4.1 mmol/L (3.4-5.1)
[2024-12-23] MEDS ORDERED: SODIUM CHLORIDE 0.9% 1,000 ML IV SCH (16:10)
[2024-12-23] MEDS ORDERED: traMADol Hydrochloride 50 MG TAB PO PRN (16:10)
[2024-12-23 17:40] LABS: BILIRUBIN Negative (Negative); BLOOD Negative (Negative); CLARITY Clear (Clear); COLOR Yellow (Yellow); GLUCOSE Negative (Negative); KETONE Negative (Negative); LEUKO ESTERASE Trace (Negative); NITRITE Negative (Negative); PH 5.5 (4.5-8.0); SPECIFIC GRAVITY <= 1.005 (1.001-1.030); UROBILINOGEN 0.2 E.U./dl (0.0-1.0)
[2024-12-23 17:58] LABS: BACTERIA 4+; EPITHELIAL CELLS 0-2
[2024-12-23] MEDS ORDERED: APIXABAN 2.5 MG TABLET PO SCH (18:00)
[2024-12-23 18:03] VITALS: BP 117/60
[2024-12-23 20:08] VITALS: BP 135/58
[2024-12-23 22:00] VITALS: BP 176/87
[2024-12-24] VITALS: BP 133/71
[2024-12-24 06:27] LABS: BASO # 0.1 10*3/uL (0.0-0.1); BASO % 0.8 % (0.0-1.0); EOS # 0.3 10*3/uL (0.0-0.4); HEMATOCRIT 38.2 % (37.0-47.0); MEAN CORPUSCULAR HGB 32.2 pg (27.0-31.0); MEAN CORPUSCULAR HGB CONC 33.5 g/dl (33.0-37.0); MEAN PLATELET VOLUME 8.8 fl (9.6-12.3); MONO % 11.7 % (3.0-9.0); NEUT # 5.2 10*3/uL (2.3-7.9); PLATELET COUNT AUTOMATED 264 10*3/uL (130-400); RED BLOOD COUNT 3.98 10*6/uL (4.10-5.10); RED CELL DISTRI WIDTH 13.2 % (0-14.5); WHITE BLOOD COUNT 8.5 10*3/uL (4.8-10.8)
[2024-12-24 06:36] LABS: CHLORIDE 112 mmol/L (98-107); POTASSIUM 3.8 mmol/L (3.4-5.1)
[2024-12-24 06:48] LABS: BUN 13 mg/dl (9-23)
[2024-12-24] MEDS ORDERED: Levothyroxine Sodium 75 MCG TAB PO SCH (07:00)
[2024-12-24 08:00] VITALS: BP 153/78
[2024-12-24] MEDS ORDERED: traMADol Hydrochloride 50 MG TAB PO PRN (08:30)
[2024-12-24] MEDS ORDERED: predniSONE 5 MG TAB PO SCH (10:00)
[2024-12-24] MEDS ORDERED: cefTRIAXone Sodium 1 GM in SYRINGE INFUSION 10 ML IV SCH (10:00)
[2024-12-24] MEDS ORDERED: ESCITALOPRAM OXALATE 10 MG TAB PO SCH (10:00)
[2024-12-24 12:00] VITALS: BP 176/68
[2024-12-24 16:00] VITALS: BP 168/62
[2024-12-24] MEDS ORDERED: Midodrine Hydrochloride 5 MG TAB PO SCH (16:00)
[2024-12-24 20:00] VITALS: BP 159/70
[2024-12-25] VITALS: BP 158/69
[2024-12-25 08:00] VITALS: BP 146/58
[2024-12-25] MEDS ORDERED: PREDNISONE5 MG PO (08:52)
[2024-12-25] MEDS ORDERED: ESCITALOPRAM OX10 MG PO ×2 (08:52→08:53)
[2024-12-25] MEDS ORDERED: CEFUROXIME250 MG PO (08:52)
[2024-12-25] MEDS ORDERED: MIDODRINE HCL5 M1 PO ×2 (08:52→08:53)
[2024-12-25] MEDS ORDERED: Losartan Potassium 50 MG TAB PO SCH (10:00)
[2024-12-25] MEDS ORDERED: OMEPRAZOLE 20 MG CAP PO SCH (10:00)
== END 2024-12-25 11:24 | disposition home or self-care (01) | DRG 73 ==
LOC: ED 12:32 → EDHOLD 14:40 → 5E 14:40
PROVIDERS: Internal Medicine; ADMIT Internal Medicine; ATTEND Internal Medicine
DX: G90.89 Other disorders of autonomic nervous system (principal); N17.0 Acute kidney failure with tubular necrosis; F33.1 Major depressive disorder, recurrent, moderate; N39.0 Urinary tract infection, site not specified; I95.1 Orthostatic hypotension; I10 Essential (primary) hypertension; E03.9 Hypothyroidism, unspecified; R62.7 Adult failure to thrive; I48.0 Paroxysmal atrial fibrillation; B96.89 Other specified bacterial agents as the cause of diseases classified elsewhere; E11.9 Type 2 diabetes mellitus without complications; M35.3 Polymyalgia rheumatica; Z96.1 Presence of intraocular lens; Z88.2 Allergy status to sulfonamides; Z79.899 Other long term (current) drug therapy; Z79.01 Long term (current) use of anticoagulants; Z79.2 Long term (current) use of antibiotics; Z90.49 Acquired absence of other specified parts of digestive tract; Z95.5 Presence of coronary angioplasty implant and graft; Z98.42 Cataract extraction status, left eye; Z98.41 Cataract extraction status, right eye; Z83.3 Family history of diabetes mellitus; Z82.49 Family history of ischemic heart disease and other diseases of the circulatory system; Z80.8 Family history of malignant neoplasm of other organs or systems; Z68.21 Body mass index [BMI] 21.0-21.9, adult

== ENCOUNTER → 2025-01-13 | Outpatient (CLI) | payer MEDICARE ==
[~2025-01-13] MED LIST changes: +CEFUROXIME250 MG PO; +ESCITALOPRAM OX10 MG PO; +MIDODRINE HCL5 M1 PO
== END | disposition home or self-care (01) ==
LOC: ORTHO 01-12 14:37
PROVIDERS: ATTEND Orthopaedic Surgery
DX: M19.011 Primary osteoarthritis, right shoulder (principal); M77.8 Other enthesopathies, not elsewhere classified